=== PATIENT | male | born 1955 | race Caucasian/White ===

== ENCOUNTER → 2017-07-10 16:06 | Outpatient (CLI) | payer OTHER, SELFPAY ==
[2017-07-10 16:40] LABS: Absolute Lymphocyte Count 1.78 X10^3/ul (0.83-4.51); Absolute Neutrophil Count 2.9 X10^3/uL (2.0-7.7); Basophil# 0.03 X10^3/uL; Basophil% 0.6 % (0-1); Eosinophil# 0.25 X10^3/uL; Eosinophils% 4.6 % (0-5); Hematocrit 43.4 % (40-54); Hemoglobin 14.9 g/dl (13.0-16.5); Lymphocyte # 1.78 X10^3/ul (4.0); Lymphocyte % 32.8 % (19-41); Mean Corp Hgb Conc 34.3 g/gl (32-36); Mean Corpuscular Hgb 30.4 pg (27.0-32.0); Mean Corpuscular Volume 88.6 fL (80-94); Mean Platelet Vol. 11.4 fl (6.2-12.0); Monocyte# 0.42 X10^3/uL; Monocyte% 7.7 % (0-10); Neutrophil # 2.93 X10^3/uL (2.7-7.7); Neutrophil % 54.1 % (47-70); Platelet Count 183 K/mm3 (150-450); RBC Distribution Width SD 42.2 fl (35.1-43.9); White Blood Count 5.4 K/mm3 (4.4-11.0)
[2017-07-10 16:46] LABS: POSITIVE COUNT NO; POSITIVE DIFFERENTIAL NO; POSITIVE MORPHOLOGY NO
[2017-07-10 17:25] LABS: ALB/GLOB Ratio 1.2 RATIO (0.9-2.4); AST(SGOT) 14 U/L (15-37); Alanine Aminotransfer ALT/SGPT 24 U/L (16-61); Albumin, Serum 3.9 g/dL (3.2-5.0); Alkaline Phosphatase 94 U/L (45-117); Anion Gap 6 (5-15); BUN 15 mg/dL (7-18); BUN/Creat Ratio 18.5 RATIO (10-20); Calcium,Total 8.7 mg/dL (8.5-10.1); Chloride 106 mmol/L (98-107); Creatinine, Serum 0.81 mg/dL (0.70-1.30); EST Glomerular Filtration Rate 102 mL/min (>60); Est Glom Filt Rate - Afr Amer 123 mL/min (>60); Globulin 3.3 g/dL (2.2-4.2); Glucose 122 mg/dL (74-106); Potassium 4.4 mmol/L (3.5-5.1); Protein, Total 7.2 g/dL (6.4-8.2); Sodium Level 140 mmol/L (136-145)
== END ==
PROVIDERS: Family Provider Family Medicine Geriatric Medicine; PCP Family Medicine Geriatric Medicine; Visit Provider Family Medicine Geriatric Medicine
DX: E11.9 Type 2 diabetes mellitus without complications (principal); E23.6 Other disorders of pituitary gland; I10 Essential (primary) hypertension
CPT/HCPCS: 36415; 80053; 84403; 84443; 85025

== ENCOUNTER → 2018-01-10 16:19 | Outpatient (CLI) | payer SELFPAY ==
[2018-01-10 17:21] LABS: Absolute Lymphocyte Count 1.67 X10^3/ul (0.83-4.51); Absolute Neutrophil Count 2.6 X10^3/uL (2.0-7.7); Basophil# 0.03 X10^3/uL; Basophil% 0.6 % (0-1); Eosinophil# 0.25 X10^3/uL; Eosinophils% 5.1 % (0-5); Hematocrit 45.4 % (40-54); Hemoglobin 15.6 g/dl (13.0-16.5); Lymphocyte # 1.67 X10^3/ul (4.0); Lymphocyte % 33.9 % (19-41); Mean Corp Hgb Conc 34.4 g/gl (32-36); Mean Corpuscular Hgb 30.2 pg (27.0-32.0); Mean Corpuscular Volume 87.8 fL (80-94); Mean Platelet Vol. 11.6 fl (6.2-12.0); Monocyte% 8.1 % (0-10); Neutrophil # 2.56 X10^3/uL (2.7-7.7); Neutrophil % 51.9 % (47-70); Platelet Count 220 K/mm3 (150-450); RBC Distribution Width CV 13.4 % (11.6-14.6); RBC Distribution Width SD 42.8 fl (35.1-43.9); Red Blood Count 5.17 M/mm3 (4.6-6.2); White Blood Count 4.9 K/mm3 (4.4-11.0)
[2018-01-10 17:29] LABS: POSITIVE COUNT NO; POSITIVE DIFFERENTIAL NO; POSITIVE MORPHOLOGY NO
[2018-01-10 17:31] LABS: ALB/GLOB Ratio 1.1 RATIO (0.9-2.4); AST(SGOT) 15 U/L (15-37); Alanine Aminotransfer ALT/SGPT 24 U/L (16-61); Albumin, Serum 3.7 g/dL (3.2-5.0); Alkaline Phosphatase 107 U/L (45-117); Anion Gap 9 (5-15); BUN 14 mg/dL (7-18); BUN/Creat Ratio 16.5 RATIO (10-20); Chloride 105 mmol/L (98-107); Creatinine, Serum 0.85 mg/dL (0.70-1.30); EST Glomerular Filtration Rate 97 mL/min (>60); Est Glom Filt Rate - Afr Amer 117 mL/min (>60); Globulin 3.4 g/dL (2.2-4.2); Glucose 145 mg/dL (74-106); Potassium 4.3 mmol/L (3.5-5.1); Protein, Total 7.1 g/dL (6.4-8.2); Sodium Level 138 mmol/L (136-145); Thyroid Stim Hormone (TSH) 1.58 uIU/mL (0.358-3.74)
== END ==
PROVIDERS: Family Provider Family Medicine Geriatric Medicine; PCP Family Medicine Geriatric Medicine; Visit Provider Family Medicine Geriatric Medicine
DX: E11.9 Type 2 diabetes mellitus without complications (principal); E23.6 Other disorders of pituitary gland; I10 Essential (primary) hypertension
CPT/HCPCS: 36415; 80053; 84403; 84443; 85025

== ENCOUNTER 2021-05-26 13:44 | Observation (INO) | payer MEDICARE, SELFPAY ==
[2021-05-26] VITALS (10 sets, daily range): BP systolic 127–199; BP diastolic 75–86; PULSE 51–62; RESP 14–18; TEMP 36.6–36.8; O2SAT 97–99; BMI 34.9; BMI 34.6
--- NOTE | 2021-05-26 14:03 | EKG12_ITS ---
Test Reason : STROKE TEAM Blood Pressure : / mmHG Vent. Rate : 059 BPM Atrial Rate : 059 BPM P-R Int : 248 ms QRS Dur : 164 ms QT Int : 474 ms P-R-T Axes : 058 -71 005 degrees QTc Int : 469 ms Sinus bradycardia with 1st degree A-V block Right bundle branch block Left anterior fascicular block Bifascicular block Abnormal ECG Confirmed by DAFNE ROGER, DULCE ([id number]), editor book ANTHONY NICOLE ([id number]) on 05/27/2021 9:35:41 AM Referred By: TYLER Confirmed By:DULCE LEOS MD
--- NOTE | 2021-05-26 14:03 | CT_ITS ---
STUDY: CT HEAD STROKE PROTOCOL W/O CONTRAST INJECTION REASON FOR EXAM: Male, 65 years old. Neuro deficit, acute, stroke suspected RADIATION DOSAGE (If Supplied By Facility): CTDIvol = ( 47.06 ) mGy, DLP = ( 898.33 ) mGycm TECHNIQUE: Transaxial CT imaging of the brain was performed without administration of intravenous contrast material. Individualized dose optimization techniques were used for this CT. COMPARISON: No relevant priors. FINDINGS: Normal soft tissue structures. Normal calvarium. Normal size ventricles and extra-axial spaces for the patient''s age. Normal white matter tracts of the cerebral hemispheres. Tiny lacuna is seen in the left basal ganglia. Normal brainstem. Normal cerebellum. There is no intracranial hemorrhage. There are no findings of an acute ischemic infarction. Partial opacification of the ethmoid sinuses as well as the right sphenoid sinus and mucosal thickening of the maxillary sinuses. CT/STROKE Brain/Head without Cont IMPRESSION: Tiny old lacunar in the right basal ganglion. Sinusitis. N.B. : The above Results were Read Back by Ezio Holloway MD to Heron Manrique and understanding confirmed on 05/26/2021 14:19:15 (ET). Electronically Signed: Ezio Holloway MD at 14:20 EST , Service support ,
--- NOTE | 2021-05-26 14:04 | CT_ITS ---
STUDY: CTA HEAD AND NECK WITH CONTRAST REASON FOR EXAM: Male, 65 years old. Neuro deficit, acute, stroke suspected RADIATION DOSAGE (If Supplied By Facility): CTDIvol = ( 48.00 ) mGy, DLP = ( 2035.01 ) mGycm TECHNIQUE: CT angiography was performed with a multi-detector CT scanner. Data acquisition was obtained from the skull base through the vertex following intravenous administration of IV 100mL Isovue-370. MIP images were reconstructed from the axial data set. Post-processing of the angiographic images was performed, with multiplanar reformation and 3D reconstruction. Individualized dose optimization techniques were used for this CT. COMPARISON: No relevant priors. FINDINGS: Normal bilateral petrous carotid arteries. Normal right cavernous carotid artery with a normal supraclinoid bifurcation. Normal left cavernous carotid artery with a normal supraclinoid bifurcation. Normal right A1 segments of the anterior cerebral artery. Normal left A1 segments of the anterior cerebral artery. Normal intact anterior communicating artery (ACOM). Normal bilateral A2 segments of the anterior cerebral arteries. Normal right M1 and M2 segments of the middle cerebral arteries, with a normal M1 bifurcation. Normal left M1 and M2 segments of the middle cerebral arteries, with a normal M1 bifurcation. Normal right posterior communicating artery (PCOM). Normal left posterior communicating artery (PCOM). Normal bilateral vertebral arteries. Normal basilar artery with a normal basilar bifurcation. The visualized bilateral superior cerebellar (SCA) arteries are normal. Normal bilateral P1, P2 and visualized P3 segments of the posterior cerebral arteries. There is no demonstrated aneurysm of the [place]. AORTIC ARCH: Normal visualized aortic arch. Normal origins of the brachiocephalic, left common carotid, and left subclavian arteries. RIGHT CAROTID ARTERIES: Normal right common carotid artery (CCA). Normal right common carotid bulb. There is mild atherosclerotic plaque formation of the origin of the right internal carotid artery with less than 50% cross sectional diameter stenosis. Normal visualized cervical portion of the right internal carotid artery. Normal origin of the right external carotid artery (ECA). LEFT CAROTID ARTERIES: Normal left common carotid artery (CCA). Normal left common carotid bulb. There is mild atherosclerotic plaque formation of the origin of the left internal carotid artery with less than 50% cross sectional diameter stenosis. Normal visualized cervical portion of the left internal carotid artery. Normal origin of the left external carotid artery (ECA). VERTEBRAL ARTERIES: Normal bilateral vertebral arteries. CT/STROKE CTA Head AND Neck W/Con IMPRESSION: Minimal plaque is seen at the origin of the right and left internal carotid arteries causing less than 50% luminal stenosis. N.B. : The above Results were Read Back by Ezio Holloway MD to Heron Manrique and understanding confirmed on 05/26/2021 14:27:44 (ET). Electronically Signed: Ezio Holloway MD at 14:28 EST , Service support ,
--- NOTE | 2021-05-26 14:05 | ED.VIS.STROK ---
HPI History of Present Illness Chief Complaint: Neuro S/Sx Detail of Chief Complaint: Numbness and weakness of the right side Informant: patient Narrative Narrative: Patient presents to the emergency department with complaint of numbness of the right arm that he noticed this morning when he woke up around 5:30 AM. He went to bed last night feeling fine. Patient initially thought maybe he just slept wrong and it would work itself out. Patient states he does not feel quite right and he feels like his right leg is sweating more than the opposite side. He describes weakness of the right arm and this numbness and tingling. Patient has a numbness and tingling to the right posterior base of the occiput as well. He denies visual changes. He denies difficulty with speech. Patient has history of diabetes and hypertension but has not seen a doctor in 3 years and has not been taken any medications for this. Patient has had his COVID-vaccine. He denies recent illness. He denies trauma to his neck. Prior similar symptoms: [facility] Medical History (Updated 05/26/21 @ 14:[address] Heron Manrique, ) Diabetes Hypertension Allergy/AdvReac Type Severity Reaction Status Date / Time No Known Allergies Allergy Verified 05/26/21 13:45 Social History Smoking Status: Never smoker [facility] ED Constitutional Constitutional ED: Reports systems reviewed and no addt'l complaints, except as documented; Denies body ache(s), change in weight or chills Eyes Eyes: Denies acute decrease in peripheral vision, change in vision, double vision or loss of vision ENT ENT ED: Reports none; Denies ear pain, lip swelling, loss taste/smell, neck pain, otalgia or sore throat Cardiovascular Cardiovascular: Reports none; Denies abdominal pain, chest pain with activity, leg edema, lightheadedness, palpitations, rapid heart rate or syncope Respiratory/Chest Respiratory/Chest: Reports none; Denies change in mental status, dry cough, dyspnea, hemoptysis, shortness of breath at rest or shortness of breath with exertion Gastrointestinal Gastrointestinal: Reports none; Denies abdominal pain, change in stool character, diarrhea, hematemesis, hematochezia, melena, rectal bleeding or vomiting Genitourinary Genitourinary ED: Reports none; Denies abdominal discomfort, anuria, dysuria, genital pain or polyuria Musculoskeletal Musculoskeletal: Reports none; Denies arthralgias, back pain, difficulty walking, extremity pain, muscle weakness or myalgias Integumentary Reports none; Denies abscess or rash Neurologic Neurologic: Reports none, headache(s), paresthesias and weakness; Denies abnormal gait, confusion, focal weakness, frequent falls, loss of vision, numbness, radicular pain or vertigo Psychiatric Psychiatric: Reports systems reviewed and no addt'l complaints, except as documented and none; Denies behavioral changes, confusion, difficulty concentrating, hallucinations, suicidal ideation, tactile hallucinations or visual hallucinations Endocrine Endocrinology: Denies none, cold intolerance, excessive sweating, fatigue or heat intolerance Hematologic/Lymphatic Hematologic/Lymphatic: Reports none; Denies anemia, easy bleeding or easy bruising Allergic/Immunologic Allergic/Immunologic ED: Denies as per HPI, none, lip swelling, mouth swelling, throat swelling, tongue swelling or hives EXAM Physical Exam Const Vital Signs: 05/26/21 13:45 05/26/21 14:13 05/26/21 14:18 Temperature 97.8 F Temperature Source Temporal Pulse Rate 62 59 L Respiratory Rate 15 17 Blood Pressure 199/78 H 144/82 H Blood Pressure Mean 118 102 Pulse Ox 97 98 Oxygen Delivery Method Room Air Room Air Room Air 05/26/21 14:48 Temperature Temperature Source Pulse Rate 56 L Respiratory Rate 14 Blood Pressure 127/78 H Blood Pressure Mean 94 Pulse Ox 97 Oxygen Delivery Method Room Air Positive well nourished and well developed General Appearance ED: well developed and NAD HEENT Reports TM's clear and moist mucous membranes normocephalic and atraumatic; Negative for trauma or tenderness Tympanic Membrane ED: Yes TM's clear Eyes PERRL and EOMs intact bilaterally General Eye ED: Negative for pale conjunctiva or scleral icterus Neck no lymphadenopathy, supple and no JVD General: Negative for tenderness Chest Wall inspection of chest normal and palpation of chest normal Chest: Negative for tenderness Resp normal respiratory effort and clear to auscultation bilaterally Effort and Inspection: Negative for respiratory distress or pain with movement Auscultation: Negative for rhonchi, wheezes or diminished lung sounds Cardio regular rate, regular rhythm, S1 normal heart sound, S2 normal heart sound and no murmurs Peripheral Pulses: pulses 2+ throughout GI normal to inspection, nondistended, normoactive bowel sounds, soft to palpation, non-tender, non-distended and no masses Back/Spine no CVA tenderness and no thoracic nor lumbar tenderness Extremity normal to inspection General Extremety ED: Negative for edema General Extremity: Negative for edema Neuro oriented x3, CN's II-XII intact bilaterally, no sensory deficits noted and gait normal Neuro Narrative: Patient having a hard time lifting the right arm above 90 degrees on the right. He has decree sensation on the right compared to the left. He is got normal range of motion of the digits on both sides. Normal strength of the lower extremities. No facial droop. NIH stroke scale was a 3. Sensorium / Orientation: awake, alert, oriented to person, oriented to place and oriented to time Motor Exam: strength 5/5 throughout and strength abnormal Psych mental status grossly normal Skin no rashes or lesions noted and no wounds STROKE Vital Signs/Narrative: Vital Signs Temp Pulse Resp BP Pulse Ox 05/26/21 14:48 56 L 14 127/78 H 97 05/26/21 14:18 59 L 17 144/82 H 98 05/26/21 13:45 97.8 F 62 15 199/78 H 97 MDM MDM MDM Narrative Medical decision making narrative: IV line established on arrival. Given that he has had symptoms for less than 24 hours a stroke team was called. Patient is not in the thrombolytic window given last known well was last evening. Patient work-up in the department unremarkable other than a right basal ganglia small lacunar infarct that appears to be old. At this point I will discussed with hospitalist evaluate patient for admission to complete stroke work-up. In the differential would be cervical cord compression as etiology of some of his symptoms or peripheral neuropathy. Lab Data Attestation: I reviewed the patient's lab results. Labs: Laboratory Results - last 24 hr 05/26/21 05/26/21 05/26/21 14:08 14:08 14:08 WBC 5.4 RBC 5.43 Hgb 16.2 Hct 46.9 MCV 86.4 MCH 29.8 MCHC 34.5 RDW Std Deviation 39.1 RDW Coeff of Fam 12.5 Plt Count 205 MPV 11.0 Immature Gran % (Auto) 0.400 Neut % (Auto) 58.8 Lymph % (Auto) 29.2 [place] % (Auto) 6.3 Eos % (Auto) 4.6 Baso % (Auto) 0.7 Absolute Neuts (auto) 3.2 Absolute Lymphs (auto) 1.57 Nucleated RBC % 0 PT 11.9 INR 0.9 APTT 27.7 Sodium 136 Potassium 4.3 Chloride 101 Carbon Dioxide 28.0 Anion Gap 7 BUN 13 Creatinine 0.73 Estim Creat Clear Calc 85.67 Est GFR (MDRD) Af Amer 138 Est GFR (MDRD) Non-Af 114 BUN/Creatinine Ratio 17.8 Glucose 288 H Calcium 9.3 Troponin I High Sens 8 POC Glucose 05/26/21 14:17 WBC RBC Hgb Hct MCV MCH MCHC RDW Std Deviation RDW Coeff of Fam Plt Count MPV Immature Gran % (Auto) Neut % (Auto) Lymph % (Auto) [place] % (Auto) Eos % (Auto) Baso % (Auto) Absolute Neuts (auto) Absolute Lymphs (auto) Nucleated RBC % PT INR APTT Sodium Potassium Chloride Carbon Dioxide Anion Gap BUN Creatinine Estim Creat Clear Calc Est GFR (MDRD) Af Amer Est GFR (MDRD) Non-Af BUN/Creatinine Ratio Glucose Calcium Troponin I High Sens POC Glucose 263 H Radiography Diagnostic Testing: Clinical Impression(s) from Imaging Studies Brain CT 05/26/21 14:03 IMPRESSION: Tiny old lacunar in the right basal ganglion. Sinusitis. N.B. : The above Results were Read Back by Ezio Holloway MD to Heron Manrique and understanding confirmed on 05/26/2021 14:19:15 (ET). Electronically Signed: Ezio Holloway MD at 14:20 EST , Service support , ADDENDUM: 05/26/21 1427 IMPRESSION: Tiny old lacunar in the right basal ganglion. Sinusitis. N.B. : The above Results were Read Back by Ezio Holloway MD to Heron Manrique and understanding confirmed on 05/26/2021 14:19:15 (ET). Electronically Signed: Ezio Holloway MD at 14:20 EST , Service support , Head/Neck CTA 05/26/21 14:04 IMPRESSION: Minimal plaque is seen at the origin of the right and left internal carotid arteries causing less than 50% luminal stenosis. N.B. : The above Results were Read Back by Ezio Holloway MD to Heron Manrique and understanding confirmed on 05/26/2021 14:27:44 (ET). Electronically Signed: Ezio Holloway MD at 14:28 EST , Service support , ADDENDUM: 05/26/21 1435 IMPRESSION: Minimal plaque is seen at the origin of the right and left internal carotid arteries causing less than 50% luminal stenosis. N.B. : The above Results were Read Back by Ezio Holloway MD to Heron Manrique and understanding confirmed on 05/26/2021 14:27:44 (ET). Electronically Signed: Ezio Holloway MD at 14:28 EST , Service support , Chest X-Ray 05/26/21 14:30 IMPRESSION: Normal x-ray examination of the chest. Electronically Signed: Ezio Holloway MD at 14:39 EST , Service support , 1 view chest x-ray obtained interpreted by myself as no acute disease process. Radiology in agreement. EKG Initial EKG: Attestation: I personally reviewed and interpreted this EKG as follows: Comments: Sinus rhythm with a ventricular rate of 59 bpm with first-degree AV block and right bundle branch block Stroke Documentation Questions Stroke Team Activated: Yes Reviewed Inclusion/Exclusion criteria: Yes IV Alteplase (t-PA) Administered: No Discharge Plan Dx/Rx/DC Orders Clinical Impression: Acute CVA (cerebrovascular accident) Disposition Disposition: [facility]
[2021-05-26 14:13] LABS: Absolute Lymphocyte Count 1.57 X10^3/uL (0.83-4.51); Absolute Neutrophil Count 3.2 X10^3/uL (2.0-7.7); Basophil# 0.04 X10^3/uL; Basophil% 0.7 % (0-1); Eosinophil# 0.25 X10^3/uL; Eosinophils% 4.6 % (0-5); Hematocrit 46.9 % (40-54); Hemoglobin 16.2 g/dL (13.0-16.5); Lymphocyte # 1.57 X10^3/ul (0.83-4.51); Lymphocyte % 29.2 % (19-41); Mean Corp Hgb Conc 34.5 g/dL (32-36); Mean Corpuscular Hgb 29.8 pg (27.0-32.0); Mean Corpuscular Volume 86.4 fL (80-94); Monocyte# 0.34 X10^3/uL; Monocyte% 6.3 % (0-10); NRBC Flagged by Analyzer 0 % (0-5); Neutrophil # 3.16 X10^3/uL (2.7-7.7); Neutrophil % 58.8 % (47-70); Platelet Count 205 K/mm3 (150-450); RBC Distribution Width CV 12.5 % (11.6-14.6); RBC Distribution Width SD 39.1 fl (35.1-43.9); Red Blood Count 5.43 M/mm3 (4.6-6.2); White Blood Count 5.4 K/mm3 (4.4-11.0)
--- NOTE | 2021-05-26 14:15 | CM.ED ---
CLARISSE Note: Referral Source: Stroke Alert Referral Reason: Stroke Alert SW responded to stroke alert. CLARISSE met with patient's , Keiry. SW provided emotional support. SW remains available. Plan: Emotional support. Clarisse remains available Alva ROACH
[2021-05-26 14:20] LABS: Bedside Glucose 263 mg/dL (70-110)
[2021-05-26 14:21] LABS: International Normalized Ratio 0.9; Prothrombin Time (Protime)PT. 11.9 SECONDS (11.7-14.9)
[2021-05-26 14:22] LABS: Partial Thromboplast Time 27.7 Seconds (24.1-36.2)
[2021-05-26] MEDS: 0.9% Normal Saline 1,000 ML 100 ML IV (14:26)
--- NOTE | 2021-05-26 14:29 | ED.RN ---
pt arrives to triage with a steady gait. equal bilateral hand grasp and unknown onset of s/s. pt denied changes in vision and inability to find the words he wanted to say. pt has hx of uncontrolled diabetes and htn. Vitals as stated in triage documentation. saúl rn [id number]
--- NOTE | 2021-05-26 14:30 | RAD_ITS ---
STUDY: X-RAY CHEST REASON FOR EXAM: Male, 65 years old. Neuro deficit, acute, stroke suspected TECHNIQUE: Single AP portable view of the chest. COMPARISON: Comparison is made with prior examination dated 02/06/2017. FINDINGS: EKG electrodes are seen. The lungs are clear and expanded. There is no demonstrated pleural abnormality. Normal size heart. Normal mediastinum and audrey. Normal visualized pulmonary arteries. Normal visualized aortic arch and descending thoracic aorta. Normal visualized thoracic spine. Normal visualized ribs, clavicles, and shoulders. There is no demonstrated abnormality of the visualized soft tissue structures of the upper abdomen. RAD/Chest 1 View IMPRESSION: Normal x-ray examination of the chest. Electronically Signed: Ezio Holloway MD at 14:39 EST , Service support ,
[2021-05-26 14:32] LABS: Anion Gap 7 (5-15); BUN 13 mg/dL (7-18); BUN/Creat Ratio 17.8 RATIO (10-20); Calcium,Total 9.3 mg/dL (8.5-10.1); Chloride 101 mmol/L (98-107); Creatinine, Serum 0.73 mg/dL (0.70-1.30); EST Glomerular Filtration Rate 114 mL/min (>60); Est Glom Filt Rate - Afr Amer 138 mL/min (>60); Estimated Creatinine Clearance 85.67 ml/min; Glucose 288 mg/dL (74-106); Potassium 4.3 mmol/L (3.5-5.1); Sodium Level 136 mmol/L (136-145); Troponin-I HS 8 pg/mL (3.0-78.0)
--- NOTE | 2021-05-26 15:17 | HP.PCM.HOS_ITS ---
HPI - General General Date of Admission: 05/26/21 Date of Service: 05/26/21 Chief Complaint: right arm numbness HPI Narrative JACLYN LAM, is a 65 M who presents presents with right arm numbness. Patient woke this way at around 530. This never happened before and has persisted though has gotten slightly better. Presented to the emergency room and underwent a head CT as well as CTA of the head and neck that was unremarkable. Patient be admitted for further neurologic work-up. Patient thinks that he was lying on his back when he woke up and not just on his right side. [facility] Medical History Diabetes Hypertension Allergy/AdvReac Type Severity Reaction Status Date / Time No Known Allergies Allergy Verified 05/26/21 13:45 Social History Smoking Status: Never smoker ROS ROS Narrative Denies any blurry vision or diplopia, denies any facial weakness or droop, denies any lower extremity weakness or paresthesias. All review of systems were negative except as mentioned above in the history of present illness and the other review of systems. Vital Signs Vital Signs Vital Signs: 05/26/21 13:45 05/26/21 14:13 05/26/21 14:18 Temperature 36.6 C Temperature Source Temporal Pulse Rate 62 59 L Respiratory Rate 15 17 Blood Pressure 199/78 H 144/82 H Blood Pressure Mean 118 102 Pulse Ox 97 98 Oxygen Delivery Method Room Air Room Air Room Air 05/26/21 14:48 Temperature Temperature Source Pulse Rate 56 L Respiratory Rate 14 Blood Pressure 127/78 H Blood Pressure Mean 94 Pulse Ox 97 Oxygen Delivery Method Room Air Weight Weight: 127 kg Body Mass Index (BMI) 34.9 Physical Exam Const alert General Appearance: cooperative HEENT normocephalic, head/scalp atraumatic and moist oral mucous membranes Eyes PERRL and EOMs intact bilaterally Neck no lymphadenopathy Resp normal respiratory effort, no retractions, no use of accessory muscles and clear to auscultation bilaterally Cardio regular rate, regular rhythm, S1 normal heart sound and S2 normal heart sound GI normal to inspection, nondistended, normoactive bowel sounds, soft to palpation, non-tender and non-distended Extremity normal to inspection and full ROM Skin no rashes or lesions noted and no wounds Neuro CN's II-XII intact bilaterally, moves all extremities and no focal motor deficits Neuro Narrative: Diminished sensation on his right upper extremity compared to his left Sensorium / Orientation: awake and alert Coordination / Balance: [id number] test normal and [id number] test normal Speech: speech normal Psych affect normal Results Lab / Micro Data Attestation: I reviewed the patient's lab results. Result Diagrams: 05/26/21 14:08 05/26/21 14:08 Labs: Laboratory Results - last 24 hr 05/26/21 14:08: WBC 5.4, RBC 5.43, Hgb 16.2, Hct 46.9, MCV 86.4, MCH 29.8, MCHC 34.5, RDW Std Deviation 39.1, RDW Coeff of Fam 12.5, Plt Count 205, MPV 11.0, Immature Gran % (Auto) 0.400, Neut % (Auto) 58.8, Lymph % (Auto) 29.2, [place] % (Auto) 6.3, Eos % (Auto) 4.6, Baso % (Auto) 0.7, Absolute Neuts (auto) 3.2, Absolute Lymphs (auto) 1.57, Nucleated RBC % 0 05/26/21 14:08: PT 11.9, INR 0.9, APTT 27.7 05/26/21 14:08: Sodium 136, Potassium 4.3, Chloride 101, Carbon Dioxide 28.0, Anion Gap 7, BUN 13, Creatinine 0.73, Estim Creat Clear Calc 85.67, Est GFR (MDRD) Af Amer 138, Est GFR (MDRD) Non-Af 114, BUN/Creatinine Ratio 17.8, Glucose 288 H, Calcium 9.3, Troponin I High Sens 8 05/26/21 14:17: POC Glucose 263 H Radiology Impression Brain CT 05/26/21 14:03 IMPRESSION: Tiny old lacunar in the right basal ganglion. Sinusitis. N.B. : The above Results were Read Back by Ezio Holloway MD to Heron Manrique and understanding confirmed on 05/26/2021 14:19:15 (ET). Electronically Signed: Ezio Holloway MD at 14:20 EST , Service support , ADDENDUM: 05/26/21 1427 IMPRESSION: Tiny old lacunar in the right basal ganglion. Sinusitis. N.B. : The above Results were Read Back by Ezio Holloway MD to Heron Manrique and understanding confirmed on 05/26/2021 14:19:15 (ET). Electronically Signed: Ezio Holloway MD at 14:20 EST , Service support , Head/Neck CTA 05/26/21 14:04 IMPRESSION: Minimal plaque is seen at the origin of the right and left internal carotid arteries causing less than 50% luminal stenosis. N.B. : The above Results were Read Back by Ezio Holloway MD to Heron Manrique and understanding confirmed on 05/26/2021 14:27:44 (ET). Electronically Signed: Ezio Holloway MD at 14:28 EST , Service support , ADDENDUM: 05/26/21 1435 IMPRESSION: Minimal plaque is seen at the origin of the right and left internal carotid arteries causing less than 50% luminal stenosis. N.B. : The above Results were Read Back by Ezio Holloway MD to Heron Manrique and understanding confirmed on 05/26/2021 14:27:44 (ET). Electronically Signed: Ezio Holloway MD at 14:28 EST , Service support , Chest X-Ray 05/26/21 14:30 IMPRESSION: Normal x-ray examination of the chest. Electronically Signed: Ezio Holloway MD at 14:39 EST , Service support , Assessment & Plan Assessment/Plan (1) Arm paresthesia, right: PLAN: 1. Right arm paresthesia Noted at 05 30 on May 26. Etiology is stroke versus peripheral Check MRI of the brain, check MRI of the cervical spine, 2D echocardiogram, PT and OT. Start aspirin 2. Diabetes mellitus type 2 Sliding scale insulin 3. VT prophylaxis not indicated given his current observation status Charges/Coding Visit Charges OBSV E&M: 72613 Initial observation care L3
--- NOTE | 2021-05-26 16:00 | PCS.PANDOC ---
PANDEMIC DOCUMENTATION INITIATED: Date: 05/26/2021 Time: 1600
--- NOTE | 2021-05-26 16:03 | ECHOCS_ITS ---
Reason For Study: TIA/CVA Procedure This was a 2D Doppler, Color Flow transthoracic echocardiogram. The study was technically difficult. Contrast injection was performed. Exam performed portable in patient room. Left Ventricle Normal left ventricle. The estimated ejection fraction is 55-60 %. Right Ventricle Normal right ventricle. Normal systolic function. Medication Diluted definity 2ml given slow IV push to enhance endocardial definition. MMode/2D Measurements & Calculations LVIDd: 5.6 cm IVSd: 1.2 cm LA dimension: 4.5 cm LVIDs: 3.7 cm LVPWd: 1.2 cm FS: 34.0 % LAV(MOD-bp): 89.4 ml LA A4 area: 26.1 cm2 RA A4 area: 23.1 cm2 LAV(MOD-bp) Indexed: 35.3 ml/m2 LAV(MOD-sp2): 74.1 ml LAV(MOD-sp4): 92.7 ml Time Measurements MV dec time: 0.28 sec Doppler Measurements & Calculations MV E max francisco: 61.6 cm/sec Lat Peak E' [place]: 8.5 cm/sec Med Peak E' [place]: 7.2 cm/sec MV A max [place]isco: 88.0 cm/sec E/E' lat: 7.3 E/E' med: 8.5 MV E/A: 0.70 MV V2 max: 84.6 cm/sec MV P1/2t max francisco: 60.4 cm/sec Ao V2 max: 148.3 cm/sec MV max P.9 mmHg MV P1/2t: 91.7 msec Ao max P.8 mmHg MV V2 mean: 42.7 cm/sec MV mean P.86 mmHg MV dec slope: 193.0 cm/sec2 MV V2 VTI: 25.2 cm MVA(P1/2t): 2.4 cm2 LV V1 max: 124.3 cm/sec PA V2 max: 108.8 cm/sec LV V1 max P.2 mmHg ECHO/Echo Complete W/ Contrast Interpretation Summary The estimated ejection fraction is 55-60 %. Grade #1 Diastolic Dysfunction Trivial TR Trivial MR Contrast Echo No semental wall motion abnormalities no significant changes from previous Echo 2016 Ordering Physician: Andrade Luque Referring Physician: No PCP noted Performed By: Mane Olmstead RCS
[2021-05-26 17:27] LABS: Troponin-I HS 11 pg/mL (3.0-78.0)
[2021-05-26] MEDS: Aspirin 325 MG Tablet PO (17:50)
[2021-05-26] MEDS: Insulin Lispro 100 UNIT/ML INSULN.PEN SC ×2 (17:53→21:51)
[2021-05-26 18:00] LABS: Bedside Glucose 264 mg/dL (70-110)
[2021-05-26 21:51] LABS: Bedside Glucose 263 mg/dL (70-110)
[2021-05-27] VITALS (7 sets, daily range): BP systolic 150–156; BP diastolic 58–74; PULSE 50–59; RESP 16–18; TEMP 36.4–36.8; O2SAT 95–98
[2021-05-27 06:13] LABS: Cholesterol 160 mg/dL (200); High Density Lipoprotein 60 mg/dL; Triglycerides 87 mg/dL; Very Low Density Lipoprotein 17 mg/dL (5-40)
[2021-05-27] MEDS: 0.9% Saline Lock 10 ML Syringe IV (09:25)
[2021-05-27] MEDS: LORazepam 2 MG/ML Syringe 1 MG IV (09:26)
[2021-05-27] MEDS: Aspirin 81 MG TAB.CHEW PO (09:26)
[2021-05-27] MEDS: Insulin Lispro 100 UNIT/ML INSULN.PEN SC ×2 (09:27→11:56)
[2021-05-27 11:30] LABS: Bedside Glucose 277 mg/dL (70-110)
--- NOTE | 2021-05-27 13:11 | PCM.DC ---
Discharge Instructions Diet Discharge Diet: 2000 Calorie Control Diet Dressing / Incision Call your doctor if you observe: - (unilateral weakness. unilateral numbness. ) Follow Up Care Test Results: Test results from this visit will be discussed in further detail at your follow-up appointment, if applicable. Discharge Plan Admission Admit Date/Time: 05/26/21 15:11 Primary Reason for Your Visit: right arm paresthesia Attending Provider: Andrade Luque Primary Care Provider: Care Physician,No Primary Discharge Orders/Prescriptions Prescriptions: New aspirin 81 mg Tablet,Chewable 81 mg PO BREAKFAST Qty: 0 RF: 0 Referrals / Follow Up: Jay Dinh Chi, MD [COURTESY STAFF PHYSICIAN] - Within 2 Weeks Care Physician,No Primary [Primary Care Provider] - Disposition Disposition (needs filled in before D/C Order can be placed): Home, Self Care
--- NOTE | 2021-05-27 13:14 | DS.PCM_ITS ---
Providers Date of Admission: 05/26/21 Primary Care Physician: No Primary Care Phys Reason For Visit: RIGHT ARM NUMBNESS Diagnosis Discharge Diagnosis (1) Arm paresthesia, right: Status: Acute Code(s): R20.2 - Paresthesia of skin Medications at Discharge Home Medications aspirin 81 mg PO BREAKFAST #0 tab 05/27/21 Hospital Course Operations None Summary of Care Provided Minutes Spent on Discharge: 28 Hospital Course: 65 year old male woke up on 05/26 with right arm paresthesias. No other symptoms. Strength in RUE was intact. 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 MRI cervical spine showed no spinal cord impingement. It is felt that this is likely due to a transient palsy from malpositioning of his RUE while he slept. It is recommended he continue ASA given his h/o lacunar infarct. No additional work up needed at this time. Physical Exam Const alert and no apparent distress Neuro Neuro Narrative: MS 5/5 in UE. Slight diminished sensation in RUE. Weight / BMI Weight Weight: 125.6 kg Body Mass Index (BMI) 34.6 ABG / Lab / Microbiology Data Result Diagrams: 05/26/21 14:08 05/26/21 14:08 Laboratory: Laboratory Results - last 24 hr 05/26/21 14:08: WBC 5.4, RBC 5.43, Hgb 16.2, Hct 46.9, MCV 86.4, MCH 29.8, MCHC 34.5, RDW Std Deviation 39.1, RDW Coeff of Fam 12.5, Plt Count 205, MPV 11.0, Immature Gran % (Auto) 0.400, Neut % (Auto) 58.8, Lymph % (Auto) 29.2, Towns % (Auto) 6.3, Eos % (Auto) 4.6, Baso % (Auto) 0.7, Absolute Neuts (auto) 3.2, Absolute Lymphs (auto) 1.57, Nucleated RBC % 0 05/26/21 14:08: PT 11.9, INR 0.9, APTT 27.7 05/26/21 14:08: Sodium 136, Potassium 4.3, Chloride 101, Carbon Dioxide 28.0, Anion Gap 7, BUN 13, Creatinine 0.73, Estim Creat Clear Calc 85.67, Est GFR (MDRD) Af Amer 138, Est GFR (MDRD) Non-Af 114, BUN/Creatinine Ratio 17.8, Glucose 288 H, Calcium 9.3, Troponin I High Sens 8 05/26/21 14:17: POC Glucose 263 H 05/26/21 16:35: Troponin I High Sens 11 05/26/21 17:49: POC Glucose 264 H 05/26/21 21:43: POC Glucose 263 H 05/27/21 04:50: Triglycerides 87, Cholesterol 160, LDL Cholesterol 83, VLDL Cholesterol 17, HDL Cholesterol 60 05/27/21 11:23: POC Glucose 277 H Radiography Diagnostic Testing: Radiology Impression Brain CT 05/26/21 14:03 IMPRESSION: Tiny old lacunar in the right basal ganglion. Sinusitis. N.B. : The above Results were Read Back by Ezio Holloway MD to Heron Manrique and understanding confirmed on 05/26/2021 14:19:15 (ET). Electronically Signed: Ezio Holloway MD at 14:20 EST , Service support , ADDENDUM: 05/26/21 1427 IMPRESSION: Tiny old lacunar in the right basal ganglion. Sinusitis. N.B. : The above Results were Read Back by Ezio Holloway MD to Heron Manrique and understanding confirmed on 05/26/2021 14:19:15 (ET). Electronically Signed: Ezio Holloway MD at 14:20 EST , Service support , Head/Neck CTA 05/26/21 14:04 IMPRESSION: Minimal plaque is seen at the origin of the right and left internal carotid arteries causing less than 50% luminal stenosis. N.B. : The above Results were Read Back by Ezio Holloway MD to Heron Manrique and understanding confirmed on 05/26/2021 14:27:44 (ET). Electronically Signed: Ezio Holloway MD at 14:28 EST , Service support , ADDENDUM: 05/26/21 1435 IMPRESSION: Minimal plaque is seen at the origin of the right and left internal carotid arteries causing less than 50% luminal stenosis. N.B. : The above Results were Read Back by Ezio Holloway MD to Heron Hilaria and understanding confirmed on 05/26/2021 14:27:44 (ET). Electronically Signed: Ezio Holloway MD at 14:28 EST , Service support , Chest X-Ray 05/26/21 14:30 IMPRESSION: Normal x-ray examination of the chest. Electronically Signed: Ezio Holloway MD at 14:39 EST , Service support , Cervical Spine MRI 05/27/21 15:17 IMPRESSION: Degenerative changes with disc herniations, canal stenosis, and foraminal narrowing. Electronically Signed: Kemar George MD at 11:41 EST , Service support , Brain MRI 05/27/21 16:03 IMPRESSION: No acute intracranial abnormality. No hemorrhage or cortical infarct. Sinusitis. Electronically Signed: Kemar George MD at 11:34 EST , Service support , D/C Instructions Discharge Diet: 2000 Calorie Control Diet Call your doctor if you observe: - (unilateral weakness. unilateral numbness. ) Meaningful Use Info Meaningful Use Diagnoses (Choose all that apply): None applicable Discharge Plan Admission Admit Date/Time: 05/26/21 15:11 Primary Reason for Your Visit: right arm paresthesia Attending Provider: Andrade Luque Primary Care Provider: Care Physician,No Primary Discharge Orders/Prescriptions Prescriptions: New aspirin 81 mg Tablet,Chewable 81 mg PO BREAKFAST Qty: 0 RF: 0 Referrals / Follow Up: Jay Dinh Chi, MD [COURTESY STAFF PHYSICIAN] - Within 2 Weeks Care Physician,No Primary [Primary Care Provider] - Disposition Disposition (needs filled in before D/C Order can be placed): Home, Self Care Charges/Coding Visit Charges OBSV E&M: 36236 Observation care discharge
--- NOTE | 2021-05-27 15:17 | MRI_ITS ---
STUDY: MRI CERVICAL SPINE WITHOUT CONTRAST REASON FOR EXAM: Male, 65 years old. Right arm weakness TECHNIQUE: Standardized fat and water weighted pulse sequences were obtained in the sagittal and axial planes. COMPARISON: None FINDINGS: Normal foramen magnum and brainstem-cervical cord junction. Normal craniovertebral junction. Normal anterior atlantoaxial articulation. Normal odontoid process. There is reversal of the normal cervical lordosis. There is grade 1 retrolisthesis at C3-4 and C4-5. Normal vertebral bodies and posterior osseous elements. There is hemangioma of the T1 vertebra. C2-3: Normal endplates. Normal disc height, signal and morphology. Facet spurring on the right. Normal central canal and intervertebral neural foramina. C3-4: Disc bulge and spurring with central disc protrusion and a series 5 image 29/39. Mild facet spurring. Moderate canal stenosis. Bilateral foraminal narrowing. C4-5: Disc space narrowing. Disc bulge and spurring. Facet spurring. Moderate canal stenosis. Bilateral foraminal narrowing C5-6: Disc bulge and spurring. Facet spurring. Mild canal stenosis. No canal stenosis. C6-7: Right paracentral disc protrusion, series 5 image 15/39. Mild canal stenosis. Neural foramina are patent. C7-T1: Normal endplates. Normal disc height, signal and morphology. Normal central canal. Facet spurring. Bilateral foraminal narrowing. Normal cervical cord. Normal visualized soft tissue structures. MRI/Spine Cervical (Routine) IMPRESSION: Degenerative changes with disc herniations, canal stenosis, and foraminal narrowing. Electronically Signed: Kemar George MD at 11:41 EST , Service support ,
--- NOTE | 2021-05-27 16:03 | MRI_ITS ---
STUDY: MRI BRAIN WITHOUT CONTRAST REASON FOR EXAM: Male, 65 years old. Right arm weakness TECHNIQUE: Standardized multiplanar fat and water weighted pulse sequences were obtained. COMPARISON: CT from May 26, 2021 FINDINGS: Normal size of the ventricles and extra-axial spaces for the patient''s age. Normal white matter tracts of the supratentorial brain. There is no evidence for recent intracranial ischemia or other cause of cytotoxic edema on diffusion weighted imaging (DWI). Normal T2* images of the brain without demonstrated susceptibility artifact. There is no demonstrated hemosiderin stain. There is a dilated perivascular space or prior lacunar infarct of the right basal ganglia. Normal thalami. There is no extra-axial fluid accumulation. Normal flow voids within the major intracranial circulation suggesting patency by spin echo criteria. Normal sella turcica, pituitary gland, infundibular stalk, optic chiasm and hypothalamus. Normal tectal plate and pineal gland. Normal midbrain, gallito and medulla. Normal cerebellum. Normal basal cisterns. Normal bilateral temporal bones. Normal bilateral internal auditory canals. No demonstrated orbital abnormality, within the constraints of a routine brain study. There is moderate mucosal thickening of the visualized paranasal sinuses. Normal calvarium and skull base. Normal visualized soft tissue structures. Normal visualized upper cervical spine. MRI/Brain without Contrast IMPRESSION: No acute intracranial abnormality. No hemorrhage or cortical infarct. Sinusitis. Electronically Signed: Kemar George MD at 11:34 EST , Service support ,
== END 2021-05-27 14:43 | disposition home or self-care (01) ==
LOC: ED 15:09 → PCU 15:46
PROVIDERS: Emergency Provider Emergency Medicine
DX: R20.2 Paresthesia of skin (principal); E11.9 Type 2 diabetes mellitus without complications; I10 Essential (primary) hypertension; I44.0 Atrioventricular block, first degree; I45.2 Bifascicular block; R29.898 Other symptoms and signs involving the musculoskeletal system; R00.1 Bradycardia, unspecified; I08.1 Rheumatic disorders of both mitral and tricuspid valves; I65.23 Occlusion and stenosis of bilateral carotid arteries
CPT/HCPCS: 36415; 70450; 70496; 70498; 70551; 71045; 72141; 80048; 80061; 82962; 84484; 85025; 85610; 85730; 93005; 93306; 94762; 96361; 96374; 97162; 97166; 97802; 99218; 99284; J7030; Q9957; Q9967; A4216; C8929; G0378

== ENCOUNTER 2023-11-27 15:25 | Observation (INO) | payer MEDICARE, SELFPAY ==
[2023-11-27] VITALS (12 sets, daily range): BP systolic 139–164; BP diastolic 58–78; PULSE 52–79; RESP 17–18; TEMP 36.1–36.9; O2SAT 95–99; BMI 31.4; BMI 31.0
--- NOTE | 2023-11-27 15:32 | EKG12_ITS ---
Test Reason : SOB Blood Pressure : / mmHG Vent. Rate : 057 BPM Atrial Rate : 057 BPM P-R Int : 246 ms QRS Dur : 160 ms QT Int : 454 ms P-R-T Axes : 070 -75 020 degrees QTc Int : 441 ms Sinus bradycardia with 1st degree A-V block Right bundle branch block Left anterior fascicular block Bifascicular block Abnormal ECG Confirmed by TY ROGER, DOMINICK ([id number]), news video editor CURT KAY ([id number]) on 11/28/2023 10:19:58 AM Referred By: Confirmed By:DOMINICK CRAWFORD MD
--- NOTE | 2023-11-27 15:39 | ED.VIS.DYS ---
HPI History of Present Illness Chief Complaint: Shortness of Breath Narrative Narrative: 68-year-old male presenting with an episode of shortness of breath, lightheadedness and nausea. He states it lasted about 30 minutes while he was outside feeding his animals. He states he was carrying a 5 gallon bucket at the time. He states he had been outside all day. He states he had 2 glasses of water and Gatorade throughout the course of the day. Denies having chest pain during the episode. His states that he came into the house stating that he needed to go to the hospital. Patient admits to having 4-5 other episodes of this over the last couple of weeks. He states they did not last as long and were only about 10 minutes and he did not think anything of them. Denies have any fever, chills, cough. Patient states he has a history of UTI but has not had any symptoms of UTI. [facility] Medical History (Updated 11/27/23 @ 17:[address] Marianne Delacruz MD) Obesity Diabetes mellitus, type 2 YO on CPAP Chronic pain Hypertension Home Medications ?Medication ?Instructions ?Recorded ?Last Taken ?Type amlodipine 5 mg-benazepril 20 mg 1 cap PO DAILY 11/27/23 Unknown History capsule amlodipine 5 mg-benazepril 20 mg 1 cap PO DAILY BLOOD PRESSURE 11/27/23 Unknown History capsule glipizide 5 mg tablet 5 mg PO BID 11/27/23 Unknown History glipizide 5 mg tablet 5 mg PO BID BLOOD SUGARS 11/27/23 Unknown History metformin 500 mg tablet,extended 500 mg PO 11/27/23 Unknown History release 24 hr metformin 500 mg tablet,extended 500 mg PO BREAKFAST BLOOD SUGARS 11/27/23 Unknown History release 24 hr Allergy/AdvReac Type Severity Reaction Status Date / Time No Known Allergies Allergy Verified 11/27/23 15:28 Social History Smoking Status: Never smoker EXAM Physical Exam Const Vital Signs: 11/27/23 15:25 11/27/23 15:32 11/27/23 15:49 Temperature 98.4 F Temperature Source Oral Pulse Rate 74 Pulse Rate [Lying] 78 Respiratory Rate 18 Respiratory Effort Blood Pressure 148/68 H Blood Pressure [Lying] 149/58 H Blood Pressure [Sitting (for 1 minute prior to obtaining)] 149/68 H Blood Pressure [Standing (for 1 minute prior to obtaining)] 156/77 H Blood Pressure Mean 94 Blood Pressure Mean [Lying] 88 Blood Pressure Mean [Sitting (for 1 minute prior to obtaining)] 95 Blood Pressure Mean [Standing (for 1 minute prior to obtaining)] 103 Pulse Ox 98 95 Oxygen Delivery Method Room Air Room Air 11/27/23 16:25 11/27/23 16:25 11/27/23 17:00 Temperature Temperature Source Pulse Rate 78 79 Pulse Rate [Lying] Respiratory Rate 17 17 Respiratory Effort Normal Blood Pressure 139/69 H 142/75 H Blood Pressure [Lying] Blood Pressure [Sitting (for 1 minute prior to obtaining)] Blood Pressure [Standing (for 1 minute prior to obtaining)] Blood Pressure Mean 92 97 Blood Pressure Mean [Lying] Blood Pressure Mean [Sitting (for 1 minute prior to obtaining)] Blood Pressure Mean [Standing (for 1 minute prior to obtaining)] Pulse Ox 96 96 Oxygen Delivery Method Room Air Room Air Room Air 11/27/23 17:51 Temperature 97.9 F Temperature Source Pulse Rate 78 Pulse Rate [Lying] Respiratory Rate 18 Respiratory Effort Blood Pressure 164/65 H Blood Pressure [Lying] Blood Pressure [Sitting (for 1 minute prior to obtaining)] Blood Pressure [Standing (for 1 minute prior to obtaining)] Blood Pressure Mean 98 Blood Pressure Mean [Lying] Blood Pressure Mean [Sitting (for 1 minute prior to obtaining)] Blood Pressure Mean [Standing (for 1 minute prior to obtaining)] Pulse Ox 99 Oxygen Delivery Method General Appearance ED: Negative for pallor HEENT Reports normocephalic and head/scalp atraumatic Eyes PERRL and EOMs intact bilaterally Neck no lymphadenopathy and supple Chest Wall inspection of chest normal and palpation of chest normal Resp normal respiratory effort and clear to auscultation bilaterally Auscultation: Negative for rales, rhonchi or wheezes Cardio regular rate and regular rhythm GI normal to inspection, nondistended, normoactive bowel sounds and non-distended Auscultation: normoactive bowel sounds Palpation: soft Narrative: Deferred Extremity normal to inspection General Extremety ED: Negative for edema or tenderness General Extremity: Negative for edema Neuro oriented x3 and CN's II-XII intact bilaterally Sensorium / Orientation: alert Motor Exam: strength 5/5 throughout Psych mental status grossly normal Attitude: No agitated Skin No no rashes or lesions noted and No no wounds General Skin Exam: Negative for jaundice or pallor MDM MDM MDM Narrative Medical decision making narrative: 68-year-old male presenting with episodes of shortness of breath, lightheadedness, nausea. He states he is completely back to baseline now. He states today was the longest episode about 30 minutes. Differential includes but is not limited to ACS,pneumonia, dehydration, anemia, electrolyte abnormalities, orthostatic hypotension, dysrhythmia. CBC shows normal white blood cell count of 7.0. Hemoglobin stable at 14.0. Platelets normal at 204. Renal function and electrolytes within normal limits. High-sensitivity troponin is 30. EKG sinus bradycardia at 57 bpm with first-degree AV block. Chest x-ray interpreted by myself shows no acute cardiopulmonary process. Radiologist interprets and agrees. Patient remained shortness of breath and pain-free in the ER. Delta troponin came back at 1750. Therefore patient has an NSTEMI. Discussed the case with Dr. Whitehead who recommends Nitropaste. Patient will be started on a heparin drip and given aspirin. Discussed with hospitalist for admission. Impression: 1. NSTEMI 2. Hypertension Lab Data Attestation: I reviewed the patient's lab results. Labs: Laboratory Results - last 24 hr 11/27/23 11/27/23 11/27/23 15:49 16:30 17:50 WBC 7.0 RBC 4.57 L Hgb 14.0 Hct 40.5 MCV 88.6 MCH 30.6 MCHC 34.6 RDW Std Deviation 42.8 RDW Coeff of Fam 13.2 Plt Count 204 MPV 11.0 Immature Gran % (Auto) 0.300 Neut % (Auto) 68.5 Lymph % (Auto) 20.6 [place] % (Auto) 5.9 Eos % (Auto) 4.0 Baso % (Auto) 0.7 Absolute Neuts (auto) 4.8 Absolute Lymphs (auto) 1.44 Nucleated RBC % 0 PT 13.9 INR 1.1 APTT 29.8 Sodium 139 Potassium 4.5 Chloride 106 Carbon Dioxide 26.0 Anion Gap 7 BUN 18 Creatinine 0.65 L Estim Creat Clear Calc 117.14 Est GFR (MDRD) Af Amer 157 Est GFR (MDRD) Non-Af 130 BUN/Creatinine Ratio 27.8 H Glucose 167 H Calcium 9.2 Troponin I High Sens 30 Urine Color Yellow Urine Clarity Clear Urine pH 6.0 Ur Specific [place] 1.015 Urine Protein 30 H Urine Glucose (UA) Normal Urine Ketones 50 H Urine Occult Blood Negative Urine Nitrite Negative Urine Bilirubin Negative Urine Urobilinogen 1 H Ur Leukocyte Esterase Negative Urine RBC 0 SEEN Urine WBC 0-5 SEEN Ur Squamous Epith Cells 0-5 SEEN Ur Transition Epith Cell 0 SEEN Urine Bacteria 0 SEEN Urine Mucus 0 SEEN Radiography Diagnostic Testing: Clinical Impression(s) from Imaging Studies Chest X-Ray 11/27/23 15:45 IMPRESSION: No acute cardiopulmonary pathology Electronically Signed: Manuel Hartman MD at 16:09 EDT Reading Location ID and State: [facility] / MD Tel [phone], Service support , Discharge Plan Triage Chief Complaint: Shortness of Breath ED Provider: Adam Cardoso Dx/Rx/DC Orders Primary Care Provider: Mak Ervin Disposition Disposition: Home, Self Care
--- NOTE | 2023-11-27 15:45 | RAD_ITS ---
STUDY: X-RAY CHEST REASON FOR EXAM: Male, 68 years old. chest pain TECHNIQUE: AP portable COMPARISON: May 26, 2021. FINDINGS: The lungs are clear and expanded. There is no demonstrated pleural abnormality. Normal size heart. Normal mediastinum and audrey. Normal visualized pulmonary arteries. Normal visualized aortic arch and descending thoracic aorta. Mild degenerative changes of the thoracic spine and shoulders. Normal visualized ribs, and clavicles Calcified soft tissue density in the left axilla most likely calcified node There is no demonstrated abnormality of the visualized soft tissue structures of the upper abdomen. RAD/Chest 1 View (Portable) IMPRESSION: No acute cardiopulmonary pathology Electronically Signed: Manuel Hartman MD at 16:09 EDT ,
[2023-11-27 16:05] LABS: Absolute Lymphocyte Count 1.44 X10^3/uL (0.83-4.51); Absolute Neutrophil Count 4.8 X10^3/uL (2.0-7.7); Basophil# 0.05 X10^3/uL; Basophil% 0.7 % (0-1); Eosinophil# 0.28 X10^3/uL; Hematocrit 40.5 % (40-54); Lymphocyte # 1.44 X10^3/ul (0.83-4.51); Lymphocyte % 20.6 % (19-41); Mean Corp Hgb Conc 34.6 g/dL (32-36); Mean Corpuscular Hgb 30.6 pg (27.0-32.0); Mean Corpuscular Volume 88.6 fL (80-94); Monocyte# 0.41 X10^3/uL; Monocyte% 5.9 % (0-10); NRBC Flagged by Analyzer 0 % (0-5); Neutrophil % 68.5 % (47-70); Platelet Count 204 K/mm3 (150-450); RBC Distribution Width CV 13.2 % (11.6-14.6); RBC Distribution Width SD 42.8 fl (35.1-43.9); Red Blood Count 4.57 M/mm3 (4.6-6.2)
[2023-11-27 16:25] LABS: Anion Gap 7 (5-15); BUN 18 mg/dL (7-18); BUN/Creat Ratio 27.8 RATIO (10-20); Calcium,Total 9.2 mg/dL (8.5-10.1); Chloride 106 mmol/L (98-107); Creatinine, Serum 0.65 mg/dL (0.70-1.30); EST Glomerular Filtration Rate 130 mL/min (>60); Est Glom Filt Rate - Afr Amer 157 mL/min (>60); Estimated Creatinine Clearance 117.14 ml/min; Glucose 167 mg/dL (74-106); Potassium 4.5 mmol/L (3.5-5.1); Sodium Level 139 mmol/L (136-145); Troponin-I HS (w/2H Reflex) 30 pg/mL (3.0-78.0)
[2023-11-27 16:35] LABS: Bacteria 0 SEEN /hpf (None Seen); Mucous, Urine 0 SEEN /hpf (<or=2+); Red Blood Cells-Urine 0 SEEN /hpf (0-5)
[2023-11-27 16:45] LABS: Color, Urine Yellow (Yellow); Glucose, Dipstick Normal (Normal); Ketone-Dipstick 50 mg/dl (Negative); Leukocyte Esterase-Dipstick Negative /ul (Negative); Nitrite-Dipstick Negative (Negative); Occult Blood-Urine Negative /ul (Negative); Protein-Dipstick 30 mg/dl (Negative); Specific Gravity, Urine 1.015 (1.002-1.030); Urine Bilirubin Dipstick Negative (Negative); Urine Clarity Clear (Clear); Urine Urobilinogen 1 mg/dl (Normal)
[2023-11-27 17:04] LABS: Squamous Epithelial Cells - UA 0-5 SEEN /hpf (0-5); Transitional Epithelial - Ur 0 SEEN /hpf (0-5); White Blood Cells 0-5 SEEN /hpf (0-5)
--- NOTE | 2023-11-27 17:52 | PCM.HP.STD ---
HPI - General General Date of Admission: 11/27/23 Date of Service: 11/27/23 Chief Complaint: Lightheadedness, dizziness, nausea, dyspnea, recurrent episodes. HPI Narrative The patient is a 68 y/o M w/ PMHx: Obesity, YO on CPAP, HTN, Chronic pain syndrome, Diabetes mellitus type II who presents to the [facility] ED on 11/27/23 with history of dyspnea, lightheadedness and nausea lasting approximately 30 minutes while he was outside active feeding his animals reportedly also caring a 5 gallon bucket at that time and had been outside all day without marked intake reporting only 2 glasses of water and 1 Gatorade throughout the day with no chest pain during that episode but he did go into the house and reported to his that he had 4-5 other similar episodes of the last several weeks which prior to that lasted less long probably 10 minutes and resolves but given these episodes prompted ED evaluation to be cautious. Workup in the ED included T98.4, heart 74, BP 140/60, respiratory rate 18, 90% on room air, most recent repeat vital signs heart rate 79, BP 142/75, respiratory 17, 96% on room air, CBC with WC 7, hemoglobin 14, platelet 204 without marked shift, BMP with BUN/creatinine 18/0.65, glucose 167, troponin 30-->repeat delta troponin initially documented as 1750; however, this was in error and repeat delta troponin verified as 26, urinalysis not marked appearing, chest x-ray with no acute cardiopulmonary findings, EKG in ED with SB with rate 57 with 1 degree AVB with no acute cardiopulmonary findings otherwise. In the ED patient administered aspirin full-strength 324 mg p.o. x 1 as well as heparin drip with bolus per ED physician in addition to NG paste secondary to initial troponin delta reading as elevated 1750 consistent with NSTEMI at that time but given verified delta troponin not consistent with NSTEMI these medications were cancelled. Patient and family updated on plan given findings not consistent with NSTEMI but plan for further evaluation of his presentation for anginal equivalent. [facility] Medical History (Updated 11/27/23 @ 18:[address] Marianne Delacruz MD) Obesity Diabetes mellitus, type 2 YO on CPAP Chronic pain Hypertension Home Medications ?Medication ?Instructions ?Recorded ?Last Taken ?Type amlodipine 5 mg-benazepril 20 mg 1 cap PO DAILY 11/27/23 Unknown History capsule amlodipine 5 mg-benazepril 20 mg 1 cap PO DAILY BLOOD PRESSURE 11/27/23 Unknown History capsule glipizide 5 mg tablet 5 mg PO BID 11/27/23 Unknown History glipizide 5 mg tablet 5 mg PO BID BLOOD SUGARS 11/27/23 Unknown History metformin 500 mg tablet,extended 500 mg PO 11/27/23 Unknown History release 24 hr metformin 500 mg tablet,extended 500 mg PO BREAKFAST BLOOD SUGARS 11/27/23 Unknown History release 24 hr Allergy/AdvReac Type Severity Reaction Status Date / Time No Known Allergies Allergy Verified 11/27/23 15:28 Family History (Updated 11/27/23 @ 18:[address] Marianne Delacruz MD) Mother Dementia Father Dementia CVA (cerebral vascular accident) Diabetes Hypertension Surgical History (Updated 11/27/23 @ 18:[address] Marianne Delacruz MD) History of total right hip replacement S/P arthroscopic surgery of right knee Social History (Updated 11/27/23 @ 18:[address] Marianne Delacruz MD) household members: spouse Smoking Status: Never smoker alcohol intake: never substance use type: does not use ROS ROS Narrative Admission Review of Systems: CONSTITUTIONAL: No weight loss, fever, chills, + weakness or fatigue. HEENT: + Lightheadedness, dizziness. Eyes: No visual loss, blurred vision, double vision or yellow sclerae. Ears, Nose, Throat: No hearing loss, sneezing, congestion, runny nose or sore throat. SKIN: No rash or itching, lesions, wounds. CARDIOVASCULAR: + Lightheadedness, dizziness. No chest pain, chest pressure or chest discomfort, palpitations, edema, orthopnea, syncopal events. RESPIRATORY: + Episodes of dyspnea with concurrently headedness, dizziness. No cough or sputum, wheezing, hemoptysis. GASTROINTESTINAL: No anorexia, nausea, vomiting or diarrhea, abdominal pain, melena, BRBPR. GENITOURINARY: No dysuria, frequency, urgency or retention. NEUROLOGICAL: + Lightheadedness, dizziness. No headache, syncope, paralysis, ataxia, numbness or tingling in the extremities, focal weakness, change in bowel or bladder control, seizure. MUSCULOSKELETAL: + muscle, back pain, joint pain or stiffness. HEMATOLOGIC: No anemia, bleeding or bruising. LYMPHATICS: No enlarged nodes. No history of splenectomy. PSYCHIATRIC: No history of depression or anxiety. ENDOCRINOLOGIC: No reports of sweating, cold or heat intolerance. No polyuria or polydipsia. ALLERGIES: No history of asthma, hives, eczema or rhinitis. Vital Signs Vital Signs Vital Signs: 11/27/23 15:25 11/27/23 15:32 11/27/23 15:49 Temperature 98.4 F Temperature Source Oral Pulse Rate 74 Pulse Rate [Lying] 78 Respiratory Rate 18 Respiratory Effort Blood Pressure 148/68 H Blood Pressure [Lying] 149/58 H Blood Pressure [Sitting (for 1 minute prior to obtaining)] 149/68 H Blood Pressure [Standing (for 1 minute prior to obtaining)] 156/77 H Blood Pressure Mean 94 Blood Pressure Mean [Lying] 88 Blood Pressure Mean [Sitting (for 1 minute prior to obtaining)] 95 Blood Pressure Mean [Standing (for 1 minute prior to obtaining)] 103 Pulse Ox 98 95 Oxygen Delivery Method Room Air Room Air 11/27/23 16:25 11/27/23 16:25 11/27/23 17:00 Temperature Temperature Source Pulse Rate 78 79 Pulse Rate [Lying] Respiratory Rate 17 17 Respiratory Effort Normal Blood Pressure 139/69 H 142/75 H Blood Pressure [Lying] Blood Pressure [Sitting (for 1 minute prior to obtaining)] Blood Pressure [Standing (for 1 minute prior to obtaining)] Blood Pressure Mean 92 97 Blood Pressure Mean [Lying] Blood Pressure Mean [Sitting (for 1 minute prior to obtaining)] Blood Pressure Mean [Standing (for 1 minute prior to obtaining)] Pulse Ox 96 96 Oxygen Delivery Method Room Air Room Air Room Air 11/27/23 17:51 Temperature 97.9 F Temperature Source Pulse Rate 78 Pulse Rate [Lying] Respiratory Rate 18 Respiratory Effort Blood Pressure 164/65 H Blood Pressure [Lying] Blood Pressure [Sitting (for 1 minute prior to obtaining)] Blood Pressure [Standing (for 1 minute prior to obtaining)] Blood Pressure Mean 98 Blood Pressure Mean [Lying] Blood Pressure Mean [Sitting (for 1 minute prior to obtaining)] Blood Pressure Mean [Standing (for 1 minute prior to obtaining)] Pulse Ox 99 Oxygen Delivery Method Weight Weight: 251 lb 12.8 oz Body Mass Index (BMI) 31.4 Physical Exam Narrative Physical Examination: General: Awake, alert, oriented x 3 and cooperative, seated upright in the ED bed, fatigued but no acute distress. Skin: Normal color, normal turgor, no icterus, no cyanosis except for occasional staged ecchymoses, bilateral lower extremity venous stasis skin changes. HEENT: AT/NC, EOMI, PERRLA, MMM, no carotid bruits or JVD noted. Lungs: Mildly diminished, greater bases, appropriate effort, no rales, ronchi or wheezing. Heart: Bradycardic with regular rhythm; no gallop, rub audible. Abdomen: Soft, obese, NTTP, ND, distant normal BS, no appreciated HSM. Extremities: No cyanosis, no clubbing, mild peripheral distal not markedly pitting edema, chronic skin changes as noted, see skin. Neurological: Patient awake, alert, oriented as noted, cognitive function intact; pupils equally reactive to light and accommodation, cranial nerves grossly normal, moving all 4 extremities, strength mildly to moderately globally creased. Psychiatric: Affect appears fatigued otherwise normal, no acute evidence of depressive or anxiety feelings. Results Lab / Micro Data 11/27/23 15:49 11/27/23 15:49 Labs: Laboratory Results - last 24 hr 11/27/23 15:49: WBC 7.0, RBC 4.57 L, Hgb 14.0, Hct 40.5, MCV 88.6, MCH 30.6, MCHC 34.6, RDW Std Deviation 42.8, RDW Coeff of Fam 13.2, Plt Count 204, MPV 11.0, Immature Gran % (Auto) 0.300, Neut % (Auto) 68.5, Lymph % (Auto) 20.6, Storey % (Auto) 5.9, Eos % (Auto) 4.0, Baso % (Auto) 0.7, Absolute Neuts (auto) 4.8, Absolute Lymphs (auto) 1.44, Nucleated RBC % 0, Sodium 139, Potassium 4.5, Chloride 106, Carbon Dioxide 26.0, Anion Gap 7, BUN 18, Creatinine 0.65 L, Estim Creat Clear Calc 117.14, Est GFR (MDRD) Af Amer 157, Est GFR (MDRD) Non-Af 130, BUN/Creatinine Ratio 27.8 H, Glucose 167 H, Calcium 9.2, Troponin I High Sens 30 11/27/23 16:30: Urine Color Yellow, Urine Clarity Clear, Urine pH 6.0, Ur Specific [place] 1.015, Urine Protein 30 H, Urine Glucose (UA) Normal, Urine Ketones 50 H, Urine Occult Blood Negative, Urine Nitrite Negative, Urine Bilirubin Negative, Urine Urobilinogen 1 H, Ur Leukocyte Esterase Negative, Urine RBC 0 SEEN, Urine WBC 0-5 SEEN, Ur Squamous Epith Cells 0-5 SEEN, Ur Transition Epith Cell 0 SEEN, Urine Bacteria 0 SEEN, Urine Mucus 0 SEEN Imaging Radiology Impression Chest X-Ray 11/27/23 15:45 IMPRESSION: No acute cardiopulmonary pathology Electronically Signed: Manuel Hartman MD at 16:09 EDT Reading Location ID and State: [facility] / [place] Tel , Service support , Assessment & Plan Assessment/Plan (1) NSTEMI, initial episode of care: PLAN: Plan The patient is a 68 y/o M w/ PMHx: Obesity, YO on CPAP, HTN, Chronic pain syndrome, Diabetes mellitus type II who presents to the [facility] ED on 11/27/23 with history of dyspnea, lightheadedness and nausea lasting approximately 30 minutes while he was outside active feeding his animals reportedly also caring a 5 gallon bucket at that time and had been outside all day without marked intake reporting only 2 glasses of water and 1 Gatorade throughout the day with no chest pain during that episode but he did go into the house and reported to his that he had 4-5 other similar episodes of the last several weeks which prior to that lasted less long probably 10 minutes and resolves but given these episodes prompted ED evaluation to be cautious. #1. Recurrent episodes lightheadedness, dizziness, dyspnea concerning for possible anginal equivalent: EKG in ED with SB with rate 57 with 1 degree AVB with no acute cardiopulmonary findings otherwise, CXR w/ no acute cardiopulmonary findings, initial trop 30-->repeat delta troponin 1750 initially documented; however, this was noted to be in error and repeat delta clarified and noted to be 26. Will admit to PCU, maintain on a monitored bed, continue serial cardiac enzymes and EKGs. Obtain magnesium level upon admission. If repeat serial cardiac enzymes and EKGs remain unremarkable will plan to pursue a.m. cardiac stress testing. Echocardiogram will also be requested. ASA, NG PRN, morphine PRN. #2. Hypertension: Continue home regimen including amlodipine, benazepril, PRN hydralazine. #3. Diabetes mellitus type II: Hold oral home regimen, ADA diet with NPO at midnight, accu checks w/ ISS. HgBA1c pending. #4. Obesity: Weight loss and lifestyle changes encouraged. #5. YO: CPAP nightly. #6. DVT prophylaxis: Lovenox. #7. CODE status: Patient HCPMARGO is his who is present and living will is currently in place. Discussed CODE status at length including difference between FULL code, DNR-CCA and DNR-CC status. Following discussions about the differences in these status, requested Full Code status. Charges/Coding Visit Charges Inpatient E&M: 52919 Init Hosp L2
[2023-11-27 17:53] LABS: Reflex Troponin-HS? (from REC) Y
[2023-11-27] MEDS: Aspirin 81 MG TAB.CHEW 324 MG PO (18:05)
--- NOTE | 2023-11-27 18:08 | NURSING ---
PCU WHITE NSTEMI
[2023-11-27] MEDS: Nitroglycerin Oint 1 INCH PACKET TD (18:10)
[2023-11-27 18:12] LABS: International Normalized Ratio 1.1; Prothrombin Time (Protime)PT. 13.9 SECONDS (11.7-14.9)
[2023-11-27 18:13] LABS: Partial Thromboplast Time 29.8 Seconds (24.1-36.2)
[2023-11-27 18:45] LABS: Magnesium 2.2 mg/dL (1.6-2.6); Troponin-I HS 26 pg/mL (3.0-78.0)
--- NOTE | 2023-11-27 20:03 | ECHOD_ITS ---
Reason For Study: NSTEMI Procedure This was a 2D Doppler, Color Flow transthoracic echocardiogram. Exam performed in department. Left Ventricle Normal LV size. Left ventricular systolic function is normal. The left ventricular ejection fraction is 65 %. Stage 1 diastolic dysfunction. No regional wall motion abnormalities noted. Right Ventricle Normal RV size. Normal systolic function. Atria The left atrium is moderately enlarged. The right atrium is moderately enlarged. Mitral Valve Normal mitral valve. Tricuspid Valve Normal tricuspid valve. Aortic Valve Trisinus/trileaflet aortic valve. Pulmonic Valve Normal pulmonic valve. Great Vessels Normal aortic root. The pulmonary artery is normal size. Normal inferior vena cava. Pericardium/Pleural No pericardial effusion. MMode/2D Measurements & Calculations LVIDd: 5.8 cm IVSd: 1.0 cm Ao root diam: 3.7 cm LVIDs: 3.8 cm LVPWd: 1.1 cm RVDd: 3.5 cm FS: 34.0 % LAV(MOD-bp): 103.6 ml LVAd ap4: 38.9 cm2 LVAd ap2: 40.0 cm2 LAV(MOD-bp) Indexed: 42.8 ml/m2 LVLd ap4: 9.0 cm LVLd ap2: 9.4 cm LAV(MOD-sp2): 93.1 ml EDV(MOD-sp4): 139.6 ml EDV(MOD-sp2): 141.9 ml LAV(MOD-sp4): 112.7 ml EDV(sp4-el): 143.5 ml EDV(sp2-el): 144.3 ml LVAs ap4: 21.5 cm2 LVAs ap2: 21.7 cm2 LVLs ap4: 7.5 cm LVLs ap2: 7.8 cm ESV(MOD-sp4): 53.5 ml ESV(MOD-sp2): 52.5 ml ESV(sp4-el): 51.9 ml ESV(sp2-el): 51.3 ml EF(MOD-sp4): 61.7 % EF(MOD-sp2): 63.0 % EF(sp4-el): 63.9 % SV(MOD-sp4): 86.1 ml SV(MOD-sp2): 89.4 ml SV(sp4-el): 91.6 ml LA dimension(2D): 4.5 cm LA A4 area: 28.8 cm2 RA A4 area: 23.3 cm2 TAPSE: 3.1 cm Time Measurements MV dec time: 0.23 sec Doppler Measurements & Calculations MV E max francisco: 73.5 cm/sec Lat Peak E' Francisco: 8.8 cm/sec Med Peak E' Francisco: 9.0 cm/sec MV A max francisco: 80.3 cm/sec E/E' lat: 8.4 E/E' med: 8.2 MV E/A: 0.92 MV V2 max: 87.2 cm/sec MV P1/2t max francisco: 87.2 cm/sec Ao V2 max: 129.1 cm/sec MV max P.0 mmHg MV P1/2t: 70.5 msec Ao max P.7 mmHg MV V2 mean: 51.3 cm/sec MV dec slope: 362.6 cm/sec2 Ao V2 mean: 84.5 cm/sec MV mean P.2 mmHg Ao mean P.3 mmHg MV V2 VTI: 31.1 cm MVA(P1/2t): 3.1 cm2 Ao V2 VTI: 33.0 cm AV (velocity ratio): 0.87 LV V1 max: 110.4 cm/sec PA V2 max: 108.0 cm/sec LV V1 max P.9 mmHg PA V2 mean: 75.7 cm/sec LV V1 mean P.3 mmHg LV V1 mean: 70.6 cm/sec LV V1 VTI: 28.7 cm ECHO/Echo Complete Interpretation Summary Normal LV size. Left ventricular systolic function is normal. The left ventricular ejection fraction is 65 %. The left atrium is moderately enlarged. The right atrium is moderately enlarged. Stage 1 diastolic dysfunction. Structurally normal valves. Ordering Physician: Marianne Delacruz Referring Physician: Mak Ervin Performed By: Rosi Hay, RDCS, RVT
--- NOTE | 2023-11-27 20:03 | EKG12_ITS ---
Test Reason : CP ADMIT Blood Pressure : / mmHG Vent. Rate : 052 BPM Atrial Rate : 052 BPM P-R Int : 278 ms QRS Dur : 162 ms QT Int : 476 ms P-R-T Axes : 061 -68 002 degrees QTc Int : 442 ms Sinus bradycardia with 1st degree A-V block Left axis deviation Right bundle branch block Abnormal ECG When compared with ECG of 27-NOV-2023 15:32, MANUAL COMPARISON REQUIRED, DATA IS UNCONFIRMED Confirmed by TY ROGER, DOMINICK ([id number]), pictures editor ANTHONY NICOLE ([id number]) on 11/28/2023 1:24:39 PM Referred By: Confirmed By:DOMINICK CRAWFORD MD
[2023-11-27] MEDS: 0.9% Normal Saline (1000mL) 1,000 ML 100 ML IV (20:43)
[2023-11-27] MEDS: Atorvastatin Calcium 80 MG Tablet PO (21:43)
[2023-11-27] MEDS: Insulin Lispro 100 UNIT/ML INSULN.PEN SC (21:46)
[2023-11-27 22:11] LABS: Bedside Glucose 231 mg/dL (74-106)
[2023-11-27 22:43] LABS: Troponin-I HS 28 pg/mL (3.0-78.0)
[2023-11-28 03:29] VITALS: BP 155/70; PULSE 48; RESP 16; TEMP 36.4; O2SAT 98
--- NOTE | 2023-11-28 05:55 | EKG12_ITS ---
Test Reason : AM EKG Blood Pressure : / mmHG Vent. Rate : 050 BPM Atrial Rate : 050 BPM P-R Int : 312 ms QRS Dur : 164 ms QT Int : 446 ms P-R-T Axes : 062 -70 -29 degrees QTc Int : 406 ms Sinus bradycardia with 1st degree A-V block Right bundle branch block Left anterior fascicular block Bifascicular block Abnormal ECG When compared with ECG of 27-NOV-2023 20:21, MANUAL COMPARISON REQUIRED, DATA IS UNCONFIRMED Confirmed by TY ROGER, DOMINICK ([id number]), social media editor ANTHONY NICOLE ([id number]) on 11/28/2023 1:24:48 PM Referred By: Confirmed By:DOMINICK CRAWFORD MD
[2023-11-28 06:00] VITALS: BMI 30.9
[2023-11-28 06:12] LABS: Absolute Lymphocyte Count 1.43 X10^3/uL (0.83-4.51); Absolute Neutrophil Count 2.3 X10^3/uL (2.0-7.7); Basophil# 0.04 X10^3/uL; Basophil% 0.9 % (0-1); Eosinophil# 0.26 X10^3/uL; Eosinophils% 5.8 % (0-5); Hematocrit 37.9 % (40-54); Hemoglobin 12.8 g/dL (13.0-16.5); Lymphocyte # 1.43 X10^3/ul (0.83-4.51); Mean Corp Hgb Conc 33.8 g/dL (32-36); Mean Corpuscular Volume 88.8 fL (80-94); Mean Platelet Vol. 11.1 fl (6.2-12.0); Monocyte% 8.9 % (0-10); NRBC Flagged by Analyzer 0 % (0-5); Neutrophil # 2.32 X10^3/uL (2.7-7.7); Platelet Count 184 K/mm3 (150-450); RBC Distribution Width CV 13.2 % (11.6-14.6); RBC Distribution Width SD 42.8 fl (35.1-43.9); Red Blood Count 4.27 M/mm3 (4.6-6.2); White Blood Count 4.5 K/mm3 (4.4-11.0)
[2023-11-28] MEDS: Aspirin E.C. 81 MG Tablet PO (06:27)
[2023-11-28] MEDS: 0.9% Normal Saline (1000mL) 1,000 ML 100 ML IV (06:27)
[2023-11-28] MEDS: Lisinopril 20 MG Tablet PO (06:27)
[2023-11-28 06:47] LABS: AST(SGOT) 14 U/L (15-37); Alanine Aminotransfer ALT/SGPT 13 U/L (16-61); Alkaline Phosphatase 87 U/L (45-117); Anion Gap 6 (5-15); BUN 15 mg/dL (7-18); BUN/Creat Ratio 29.9 RATIO (10-20); Calcium,Total 8.6 mg/dL (8.5-10.1); Chloride 110 mmol/L (98-107); Cholesterol 140 mg/dL (200); EST Glomerular Filtration Rate 174 mL/min (>60); Est Glom Filt Rate - Afr Amer 210 mL/min (>60); Estimated Creatinine Clearance 116.35 ml/min; Globulin 2.9 g/dL (2.2-4.2); Glucose 170 mg/dL (74-106); High Density Lipoprotein 57 mg/dL; Potassium 3.9 mmol/L (3.5-5.1); Protein, Total 5.9 g/dL (6.4-8.2); Sodium Level 141 mmol/L (136-145); Triglycerides 83 mg/dL; Very Low Density Lipoprotein 17 mg/dL (5-40)
[2023-11-28 07:12] LABS: Hemoglobin A1c 8.6 % (3.8-5.6)
[2023-11-28 07:16] LABS: Bedside Glucose 160 mg/dL (74-106)
[2023-11-28 07:38] VITALS: O2SAT 97
[2023-11-28 08:00] VITALS: BP 155/67; PULSE 50; RESP 18; TEMP 36.6; O2SAT 97
--- NOTE | 2023-11-28 08:50 | PCM.PN.HOSP ---
Reason for Visit Reason for Visit: Diagnoses Non-ST elevation (NSTEMI) myocardial infarction (11/27/23) Objective Data Objective Data Vital Signs: Vital Signs Temp Pulse Resp BP Pulse Ox O2 Del Method 97.6 F L 48 L 16 155/70 H 98 Room Air 11/28/23 03:29 11/28/23 03:29 11/28/23 03:29 11/28/23 03:29 11/28/23 03:29 11/28/23 03:29 Oxygen Delivery Method Room Air Weight: 248 lb 3.848 oz Body Mass Index (BMI) 31.0 Intake & Output: Intake and Output for Last 24 Hours 11/26/23 11/27/23 11/28/23 23:59 23:59 23:59 Intake Total 973.33 / 973.33 Balance 973.33 / 973.33 Lab / Micro Data 11/28/23 05:22 11/28/23 05:22 Labs: Laboratory Results - last 24 hr 11/27/23 15:49: WBC 7.0, RBC 4.57 L, Hgb 14.0, Hct 40.5, MCV 88.6, MCH 30.6, MCHC 34.6, RDW Std Deviation 42.8, RDW Coeff of Fam 13.2, Plt Count 204, MPV 11.0, Immature Gran % (Auto) 0.300, Neut % (Auto) 68.5, Lymph % (Auto) 20.6, [place]hing % (Auto) 5.9, Eos % (Auto) 4.0, Baso % (Auto) 0.7, Absolute Neuts (auto) 4.8, Absolute Lymphs (auto) 1.44, Nucleated RBC % 0, Sodium 139, Potassium 4.5, Chloride 106, Carbon Dioxide 26.0, Anion Gap 7, BUN 18, Creatinine 0.65 L, Estim Creat Clear Calc 117.14, Est GFR (MDRD) Af Amer 157, Est GFR (MDRD) Non-Af 130, BUN/Creatinine Ratio 27.8 H, Glucose 167 H, Calcium 9.2, Troponin I High Sens 30 11/27/23 16:30: Urine Color Yellow, Urine Clarity Clear, Urine pH 6.0, Ur Specific [place] 1.015, Urine Protein 30 H, Urine Glucose (UA) Normal, Urine Ketones 50 H, Urine Occult Blood Negative, Urine Nitrite Negative, Urine Bilirubin Negative, Urine Urobilinogen 1 H, Ur Leukocyte Esterase Negative, Urine RBC 0 SEEN, Urine WBC 0-5 SEEN, Ur Squamous Epith Cells 0-5 SEEN, Ur Transition Epith Cell 0 SEEN, Urine Bacteria 0 SEEN, Urine Mucus 0 SEEN 11/27/23 17:50: PT 13.9, INR 1.1, APTT 29.8 11/27/23 18:12: Magnesium 2.2, Troponin I High Sens 26 11/27/23 21:45: POC Glucose 231 H 11/27/23 21:46: Troponin I High Sens 28 11/28/23 05:22: WBC 4.5, RBC 4.27 L, Hgb 12.8 L, Hct 37.9 L, MCV 88.8, MCH 30.0, MCHC 33.8, RDW Std Deviation 42.8, RDW Coeff of Fam 13.2, Plt Count 184, MPV 11.1, Immature Gran % (Auto) 0.400, Neut % (Auto) 52.0, Lymph % (Auto) 32.0, Pershing % (Auto) 8.9, Eos % (Auto) 5.8 H, Baso % (Auto) 0.9, Absolute Neuts (auto) 2.3, Absolute Lymphs (auto) 1.43, Nucleated RBC % 0, Sodium 141, Potassium 3.9, Chloride 110 H, Carbon Dioxide 25.0, Anion Gap 6, BUN 15, Creatinine 0.50 L, Estim Creat Clear Calc 116.35, Est GFR (MDRD) Af Amer 210, Est GFR (MDRD) Non-Af 174, BUN/Creatinine Ratio 29.9 H, Glucose 170 H, Hemoglobin A1c 8.6 H, Calcium 8.6, Total Bilirubin 0.50, AST 14 L, ALT 13 L, Alkaline Phosphatase 87, Total Protein 5.9 L, Albumin 3.0 L, Globulin 2.9, Albumin/Globulin Ratio 1.0, Triglycerides 83, Cholesterol 140, LDL Cholesterol 66, VLDL Cholesterol 17, HDL Cholesterol 57 11/28/23 06:56: POC Glucose 160 H Radiography Diagnostic Testing: Radiology Impression Chest X-Ray 11/27/23 15:45 IMPRESSION: No acute cardiopulmonary pathology Electronically Signed: Manuel Hartman MD at 16:09 EDT Reading Location ID and State: [facility] / [place] Tel , Service support , Assessment & Plan Assessment/Plan (1) NSTEMI, initial episode of care: PLAN: Plan The patient is a 68 y/o M was admitted with an episode of shortness of breath, lightheadedness and nausea lasted about 30 minutes while he was feeding his animals and was getting 5] at that time. Denied chest pain. Patient also had similar 4-5 episodes over the last couple of weeks but were shot about less than 10 minutes. No fever chills cough. #1. Unstable angina equivalent: Patient is being admitted in PCU. Serial troponins are negative.EKG in ED with SB with rate 57 with 1 degree AVB. CXR w/ no acute cardiopulmonary findings. Nuclear stress test an echo is ordered. #2. Hypertension: Continue home regimen including amlodipine, benazepril, PRN hydralazine. #3. Diabetes mellitus type II: Hold oral home regimen, ADA diet with NPO at midnight, accu checks w/ ISS. HgBA1c pending. #4. Obesity: Weight loss and lifestyle changes encouraged. #5. YO: CPAP nightly. #6. DVT prophylaxis: Lovenox. #7. CODE status: Patient SAMIA is his who is present and living will is currently in place. Discussed CODE status at length including difference between FULL code, DNR-CCA and DNR-CC status. Following discussions about the differences in these status, requested Full Code status.
--- NOTE | 2023-11-28 13:24 | STRESSREP_ITS ---
Stress Test Report Pharmacologic myocardial perfusion stress test. 68-year-old man with a history of shortness of breath Resting EKG demonstrates sinus bradycardia with a right bundle branch block with a rate of 50 bpm. Resting blood pressure is 164/78 mmHg. 0.4 mg of regadenoson was infused per usual protocol followed by rapid intravenous saline flush inje ction. Continuous EKG monitoring was performed. The maximum heart rate was 68 bpm which was 45% of max impacted heart rate the maximum workload was 1 metabolic equivalent. At rest there were no ST or T wave changes noted to suggest ischemia and at peak infusion nonspecific ST changes were noted which did not meet the criteria for ischemia. No clinical angina is noted. The final blood pressure was 134/78 mmHg. Myocardial perfusion protocol. 14.1 mCi of technetium 99m sestamibi was injected at rest. 0.4 mg of regadenoson was infused per usual protocol. At peak infusion 44.9 mCi of tech netium 99m sestamibi was injected stress images were obtained stress and rest images were reconstructed and compared in the short axis vertical long and horizontal long axis. Gated images were also obtained. Perfusion SPECT analysis: Review of the stress images demonstrate normal uptake of tracer noted in all areas of the myocardium. There is a fair amount of diaphragmatic attenuation noted and inferior ischemia cannot be completely excluded the resting images similar demonstrated normal uptake of tracer noted in all areas of the myocardium. No areas of reversibility are noted to suggest ischemia and no previous infarct is noted. Gated SPECT analysis: The gated ejection fraction is 60%. Conclusion: Normal pharmacologic myocardial perfusion stress test. Preserved ejection fraction. Diaphragmatic attenuation present
[2023-11-28 14:46] VITALS: BP 150/68; PULSE 53; RESP 18; TEMP 36.6; O2SAT 99
--- NOTE | 2023-11-28 15:06 | DCINST_ITS ---
Discharge Instructions Diet Discharge Diet: No restrictions Activity Discharge Activity: Return to Normal Activity Weight Bearing Status: Weight bearing as tolerated Dressing / Incision Call your doctor if you observe: Fever of 101 or Higher, Coldness, Increased Pain, Numbness or Tingling, Change in Color, Inability to urinate, Inability to have a bowel movement, Shortness of breath, Dizziness, Fainting spells, Swelling in the ankles, Chest pain, Prolonged hiccupping, Increased palpitations (irregular heartbeat) and Calf discomfort Follow Up Care When: IN 2 WEEKS Test Results: Test results from this visit will be discussed in further detail at your follow- up appointment, if applicable. Discharge Plan Admission Admit Date/Time: 11/27/23 17:53 Primary Reason for Your Visit: Atypical symptoms or shortness of breath. Attending Provider: Yusef Gaytan Primary Care Provider: Mak Ervin Consulting Providers: Marianne Delacruz Discharge Orders/Prescriptions Prescriptions: Continued amlodipine-benazepril 5-20 mg capsule 1 cap PO DAILY metformin 500 mg tablet extended release 24 hr 500 mg PO BREAKFAST glipizide 5 mg tablet 5 mg PO BID metformin 500 mg tablet extended release 24 hr 500 mg PO DAILY glipizide 5 mg tablet 5 mg PO BID Discontinued amlodipine-benazepril 5-20 mg capsule 1 cap PO DAILY Referrals / Follow Up: Mak Ervin MD [Primary Care Provider] - Care Physician,No Primary [Non-Staff] - Disposition Disposition (needs filled in before D/C Order can be placed): Home, Self Care
--- NOTE | 2023-11-28 15:10 | PCM.DC.SUM ---
Providers Date of Admission: 11/27/23 Date of Discharge: 11/28/23 Primary Care Physician: Dr. Mak Ervin MD Reason For Visit: NSTEMI Diagnosis Discharge Diagnosis (1) NSTEMI, initial episode of care: Status: Acute Code(s): I21.4 - Non-ST elevation (NSTEMI) myocardial infarction Plan The patient is a 68 y/o M was admitted with an episode of shortness of breath, lightheadedness and nausea lasted about 30 minutes while he was feeding his animals and was getting 5] at that time. Denied chest pain. Patient also had similar 4-5 episodes over the last couple of weeks but were shot about less than 10 minutes. No fever chills cough. #1. Unstable angina equivalent: Patient is being admitted in PCU. Serial troponins are negative.EKG in ED with SB with rate 57 with 1 degree AVB. CXR w/ no acute cardiopulmonary findings. Nuclear stress test an echo is ordered. 11/27: Patient had normal pharmacological myocardial perfusion stress test. Preserved EF 60%. Patient also had 2D echo which shows normal LV size with EF 65%, LA and RA moderately enlarged. Stage I diastolic dysfunction. Structurally normal valves. Discussed with the bench machine operator. Colocated the patient and that patient might have noncardiac shortness of breath on exertion. Related to chronic HFpEF as seen in echo. Mildly uncontrolled hypertension. Follow with PCP for control of blood pressure. Patient denies chronic lung disease or smoking history. #2. Hypertension: Continue home regimen including amlodipine, benazepril, PRN hydralazine. #3. Diabetes mellitus type II: Hold oral home regimen, ADA diet with NPO at midnight, accu checks w/ ISS. HgBA1c pending. #4. Obesity: Weight loss and lifestyle changes encouraged. #5. YO: CPAP nightly. #6. DVT prophylaxis: Lovenox. #7. CODE status: Patient HCPMARGO is his who is present and living will is currently in place. Discussed CODE status at length including difference between FULL code, DNR-CCA and DNR-CC status. Following discussions about the differences in these status, requested Full Code status. Discharge medication reconciliation done. Discharge follow-up instructions completed. Discharge process discussed with the patient and all questions were answered to patient's satisfaction. Follow with PCP in 1 to 2 weeks Total time spent, exact 35 minutes on discharge meds reconciliation, examination, coordination of care with nurses and ancillary staff, review of imaging and blood test and discussion with the patient on follow-up instructions. Clinical Impression(s) from Imaging Studies Chest X-Ray 11/27/23 15:45 IMPRESSION: No acute cardiopulmonary pathology Echocardiogram 11/27/23 20:03 Interpretation Summary Normal LV size. Left ventricular systolic function is normal. The left ventricular ejection fraction is 65 %. The left atrium is moderately enlarged. The right atrium is moderately enlarged. Stage 1 diastolic dysfunction. Structurally normal valves. Medications at Discharge Home Medications amlodipine 5 mg-benazepril 20 mg capsule 1 cap PO DAILY BLOOD PRESSURE 11/27/23 glipizide 5 mg tablet 5 mg PO BID 11/27/23 glipizide 5 mg tablet 5 mg PO BID BLOOD SUGARS 11/27/23 metformin 500 mg tablet,extended release 24 hr 500 mg PO BREAKFAST BLOOD SUGARS 11/27/23 metformin 500 mg tablet,extended release 24 hr 500 mg PO DAILY 11/27/23 Physical Exam Narrative Seen and examined. Patient is comfortable with no chest pain pressure or tightness. No shortness of breath. Patient had pharmacological nuclear stress test and did not had shortness of breath lightheadedness, chest pain pressure or dyspnea. Physical exam General: Alert, Oriented x3, Cooperative. BMI 31.0 kg/m?. HEENT: Atraumatic, PERRLA, EOMI, Normocephalic Oral: No Gingival or Mucosal Lesions/ Ulcerations Neck: Supple, No JVD, Negative Carotid Bruits Chest wall/Lungs: Air entry diminished in bilateral lung bases. No crepitation/rhonchi Cardiovascular: Regular rate, Regular Rhythm, Normal S1, Normal S2, No M/G/R Abdomen: Bowel Sounds Present, Soft, Non Tender, Non-Distended : No dysuria. No renal angle tenderness. No suprapubic tenderness. Extremities: No edema, Capillary Refill Less than 3 Seconds Skin: No rashes, No breakdown Musculoskeletal: No Tenderness to Palpation of Joints or Extremities Neurological: Cranial nerves II-XII grossly intact, DTR 2+/4. No acute focal neurological deficit. Psych/Mental Status: Normal Affect, Appropriate. Weight / BMI Weight Weight: 248 lb 0.321 oz Body Mass Index (BMI) 30.9 ABG / Lab / Microbiology Data 11/28/23 05:22 11/28/23 05:22 Laboratory: Laboratory Results - last 24 hr 11/27/23 15:49: WBC 7.0, RBC 4.57 L, Hgb 14.0, Hct 40.5, MCV 88.6, MCH 30.6, MCHC 34.6, RDW Std Deviation 42.8, RDW Coeff of Fam 13.2, Plt Count 204, MPV 11.0, Immature Gran % (Auto) 0.300, Neut % (Auto) 68.5, Lymph % (Auto) 20.6, [place] % (Auto) 5.9, Eos % (Auto) 4.0, Baso % (Auto) 0.7, Absolute Neuts (auto) 4.8, Absolute Lymphs (auto) 1.44, Nucleated RBC % 0, Sodium 139, Potassium 4.5, Chloride 106, Carbon Dioxide 26.0, Anion Gap 7, BUN 18, Creatinine 0.65 L, Estim Creat Clear Calc 117.14, Est GFR (MDRD) Af Amer 157, Est GFR (MDRD) Non-Af 130, BUN/Creatinine Ratio 27.8 H, Glucose 167 H, Calcium 9.2, Troponin I High Sens 30 11/27/23 16:30: Urine Color Yellow, Urine Clarity Clear, Urine pH 6.0, Ur Specific [place] 1.015, Urine Protein 30 H, Urine Glucose (UA) Normal, Urine Ketones 50 H, Urine Occult Blood Negative, Urine Nitrite Negative, Urine Bilirubin Negative, Urine Urobilinogen 1 H, Ur Leukocyte Esterase Negative, Urine RBC 0 SEEN, Urine WBC 0-5 SEEN, Ur Squamous Epith Cells 0-5 SEEN, Ur Transition Epith Cell 0 SEEN, Urine Bacteria 0 SEEN, Urine Mucus 0 SEEN 11/27/23 17:50: PT 13.9, INR 1.1, APTT 29.8 11/27/23 18:12: Magnesium 2.2, Troponin I High Sens 26 11/27/23 21:45: POC Glucose 231 H 11/27/23 21:46: Troponin I High Sens 11/28/23 05:22: WBC 4.5, RBC 4.27 L, Hgb 12.8 L, Hct 37.9 L, MCV 88.8, MCH 30.0, MCHC 33.8, RDW Std Deviation 42.8, RDW Coeff of Fam 13.2, Plt Count 184, MPV 11.1, Immature Gran % (Auto) 0.400, Neut % (Auto) 52.0, Lymph % (Auto) 32.0, [place] % (Auto) 8.9, Eos % (Auto) 5.8 H, Baso % (Auto) 0.9, Absolute Neuts (auto) 2.3, Absolute Lymphs (auto) 1.43, Nucleated RBC % 0, Sodium 141, Potassium 3.9, Chloride 110 H, Carbon Dioxide 25.0, Anion Gap 6, BUN 15, Creatinine 0.50 L, Estim Creat Clear Calc 116.35, Est GFR (MDRD) Af Amer 210, Est GFR (MDRD) Non-Af 174, BUN/Creatinine Ratio 29.9 H, Glucose 170 H, Hemoglobin A1c 8.6 H, Calcium 8.6, Total Bilirubin 0.50, AST 14 L, ALT 13 L, Alkaline Phosphatase 87, Total Protein 5.9 L, Albumin 3.0 L, Globulin 2.9, Albumin/Globulin Ratio 1.0, Triglycerides 83, Cholesterol 140, LDL Cholesterol 66, VLDL Cholesterol 17, HDL Cholesterol 57 11/28/23 06:56: POC Glucose 160 H Radiography Diagnostic Testing: Radiology Impression Chest X-Ray 11/27/23 15:45 IMPRESSION: No acute cardiopulmonary pathology Electronically Signed: Manuel Hartman MD at 16:09 EDT Reading Location ID and State: [address] [place] [address] Tel , Service support , Echocardiogram 11/27/23 20:03 Interpretation Summary Normal LV size. Left ventricular systolic function is normal. The left ventricular ejection fraction is 65 %. The left atrium is moderately enlarged. The right atrium is moderately enlarged. Stage 1 diastolic dysfunction. Structurally normal valves. Ordering Physician: Marianne Delacruz Referring Physician: Mak Ervin Performed By: Rosi Hay, RDCS, RVT D/C Instructions Discharge Diet: No restrictions Weight Bearing Status: Weight bearing as tolerated Call your doctor if you observe: Fever of 101 or Higher, Coldness, Increased Pain, Numbness or Tingling, Change in Color, Inability to urinate, Inability to have a bowel movement, Shortness of breath, Dizziness, Fainting spells, Swelling in the ankles, Chest pain, Prolonged hiccupping, Increased palpitations (irregular heartbeat) and Calf discomfort When: IN 2 WEEKS Meaningful Use Info Meaningful Use Meaningful Use Diagnoses (Choose all that apply): None applicable Ischemic Stroke Statin Dosing Therapy Reference: STATIN DOSE THERAPY REFERENCE: * Patients > 75 years receive moderate or high dose statin therapy. * Patients 75 years or YOUNGER should receive HIGH intensity statin dose unless contraindicated. You will be required to document reason for non-treatment if statin daily dose does not meet guidelines. HIGH DOSE STATIN THERAPY DAILY Atorvastatin > than or = to 40 mg Rosuvastatin > than or = to 20 mg Amlodipine + Atorvastatin > than or = to 2.5/40 mg Ezetimibe + Simvastatin 10/80 mg Simvastatin 80mg Discharge Plan Admission Admit Date/Time: 11/27/23 17:53 Primary Reason for Your Visit: Atypical symptoms or shortness of breath. Attending Provider: Yusef Gaytan Primary Care Provider: Mak Ervin Consulting Providers: Marianne Delacruz Discharge Orders/Prescriptions Prescriptions: Continued amlodipine-benazepril 5-20 mg capsule 1 cap PO DAILY metformin 500 mg tablet extended release 24 hr 500 mg PO BREAKFAST glipizide 5 mg tablet 5 mg PO BID metformin 500 mg tablet extended release 24 hr 500 mg PO DAILY glipizide 5 mg tablet 5 mg PO BID Discontinued amlodipine-benazepril 5-20 mg capsule 1 cap PO DAILY Referrals / Follow Up: Mak Ervin MD [Primary Care Provider] - Care Physician,No Primary [Non-Staff] - Disposition Disposition (needs filled in before D/C Order can be placed): Home, Self Care Charges/Coding Visit Charges Inpatient E&M: 61383 Disch Hosp >30min
--- NOTE | 2023-11-28 15:22 | CASEMGMT ---
Order for DC placed. Pt 6-Click is 24. RN CM to pt room at this time, at bedside. Pt states that he is independent and denies further needs at home including HHC, OP Tx, or CCN. Pt states that his son is coming to pick him up from the hospital today. Pt denies further questions or concerns for this RN CM and is ready for DC home today.
== END 2023-11-28 17:35 | disposition home or self-care (01) ==
LOC: ED 18:01 → PCU 19:28
PROVIDERS: Admitting Provider Family Medicine; Emergency Provider Student in an Organized Health Care Education/Training Program; PCP Family Medicine; Visit Provider Internal Medicine
DX: I20.89 Other forms of angina pectoris (principal); E11.9 Type 2 diabetes mellitus without complications; Z79.84 Long term (current) use of oral hypoglycemic drugs; R42 Dizziness and giddiness; E66.9 Obesity, unspecified; I44.0 Atrioventricular block, first degree; Z68.31 Body mass index [BMI] 31.0-31.9, adult; I10 Essential (primary) hypertension; R11.0 Nausea; G47.33 Obstructive sleep apnea (adult) (pediatric); Z79.899 Other long term (current) drug therapy; I45.2 Bifascicular block
CPT/HCPCS: 36415; 71045; 78452; 80048; 80053; 80061; 81001; 82962; 83036; 83735; 84484; 85025; 85610; 85730; 93005; 93017; 93306; 94668; 96360; 96361; 99221; 99284; A9500; J7030; A4216; G0378; J2785